=== PATIENT | female | born 1935 | race Caucasian/White ===

== ENCOUNTER 2018-12-31 12:16 | Emergency (ER) | payer MEDICARE ==
--- OUTSIDE RECORDS SUMMARY | 2018-12-31 12:37 | XMS REPORT | Continuity of Care Document ---
:1935 External Reference #:[id number] Author Name Jackie Canada MD Address [address] [place] [address] Care Team Providers Name Role Phone Shane Reece DO Care Team Information Merchandising Director Unavailable Shane Reece DO Primary Care Physician Unavailable Payers Date Identification Numbers Payment Provider Subscriber Effective: 2002 Policy Number: [id number] Medicare [facility] Elvis PayID: [id number] [address] [place] [address] Policy Number: [id number] [facility] Elvis PayID: [id number] [address] [place] [address] Problems Active Problems Provider Date Open wound of knee and/or leg and/or Massimo Iqbal MD, Onset: 10/04/2012 ankle FACS Disorder of skin Massimo Iqbal MD, Onset: 10/04/2012 FACS Contusion of knee Massimo Iqbal MD, Onset: 10/04/2012 FACS Contusion of thigh Massimo Iqbal MD, Onset: 10/18/2012 FACS Atrial fibrillation Babs Pritchard, Onset: 10/18/2012 MSN, DROP FORGER Chest pain PritchardBabs marr, Onset: 10/18/2012 MSN, DROP FORGER Benign essential hypertension Babs Pritchard, Onset: 10/18/2012 MSN, DROP FORGER Hyperlipidemia PritchardBabs marr, Onset: 10/18/2012 MSN, DROP FORGER Low blood pressure Mark Anthony Mckeon M.D., Onset: 11/01/2012 FACC Congestive heart failure PritchardBabs mondragon Kole, Onset: 09/07/2013 MSN, DROP FORGER Pulmonary embolism Pritchard, Babs Kole, Onset: 09/07/2013 MSN, DROP FORGER Diverticular disease of colon Kojo PintoElizabeth, Onset: 10/19/2013 [facility] Family history of malignant neoplasm of Millie Richarvinay LincolnElizabeth, Onset: gastrointestinal tract M.Inocente Aortic valve disorder Mark Anthony Mckeon M.D., Onset: 03/14/2014 [facility] Long-term current use of anticoagulant Mark Anthony Mckeon M.D., Onset: 02/2015 [facility] Chronic diastolic heart failure PritchardBabs marr, Onset: 07/19/2015 MSN, DROP FORGER Heart murmur Mark Anthony Mckeon M.D., Onset: 08/20/2015 [facility] Essential hypertension Mark Anthony Mckeon M.D., Onset: 08/20/2015 [facility] Paroxysmal atrial fibrillation PritchardBabs mondragon, Onset: 12/20/2015 MSN, DROP FORGER Chronic obstructive lung disease PritchardBabs mondragon, Onset: 12/20/2015 MSN, DROP FORGER Mitral valve disorder Babs Pritchard, Onset: 12/20/2015 MSN, DROP FORGER Unspecified diastolic (congestive) heart Babs Pritchard, Onset: 12/19 failure MSN, DROP FORGER Aftercare following joint replacement Freedom Rondon M.D. Onset: 01/17/2016 surgery Pneumonia Sherry Sher DO Onset: 09/20/2018 Vitamin deficiency Sherry Sher DO Onset: 09/20/2018 Long-term current use of anticoagulant Sherry Sher DO Onset: 09/20/2018 Localized, primary osteoarthritis of the Pal Mendez MD Onset: 04/17/2010 pelvic region and thigh Arthroplasty of knee Pal Mendez MD Onset: 04/17/2010 Prosthetic arthroplasty of the hip Pal Mendez MD Onset: 04/17/2010 Edema Shane Reece DO Onset: 08/23/2014 Sleep apnea Shane Reece DO Onset: 08/23/2014 Allergic rhinitis Shane Reece DO Onset: 02/24/2013 Obstructive sleep apnea syndrome Shamar Burden MD Onset: 12/30/2012 Non-toxic nodular goiter Shamar Burden MD Onset: 09/04/2012 Synovial cyst Shamar Burden MD Onset: 11/20/2009 Late effect of fracture of neck of femur Shamar Burden MD Onset: 2007 Peripheral venous insufficiency Shamar Burden MD Onset: 10/29/2005 Purpuric disorder Shamar Burden MD Onset: 01/27/2005 Osteochondropathy Shamar Burden MD Onset: 01/27/2005 Primary localized osteoarthrosis of Shamar Burden MD Onset: 01/27/2005 multiple sites Cough Shamar Burden MD Onset: 01/27/2005 Allergic asthma without status Shamar Burden MD Onset: 01/27/2005 asthmaticus 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: 12/02/2018 deficiency Shoulder joint pain Sherry Sher DO Onset: 12/02/2018 Lumbosacral spondylosis without Jackie Canada MD Onset: 12/08/2018 myelopathy Foot-drop Jackie Canada MD Onset: 12/08/2018 Family History Date Family Member(s) Observation Comments General Cancer : (age 80 Years) Father due to Aneurysm Mother Cancer : (age 80 Years) Mother due to Colon Cancer Social History Type Date Description Comments Sex Unknown Lives With Diet Patient is on a lactose-free diet Occupation Retired ADL's/IADL's Independent with all ADL's Tobacco Use Start: Unknown Never Smoked Cigarettes ETOH Use Denies alcohol use Tobacco Use Start: Unknown Patient has never smoked Smoking Status Reviewed: 05/07/18 Patient has never smoked Allergies, Adverse Reactions, Alerts Active Allergies Reaction Severity Comments Date Sulfa Drugs 10/04/2012 Plaquenil 10/04/2012 Minocycline 10/04/2012 Zithromax nausea 10/17/2013 Inactive Allergies Sulfa 01/28/2005 Medications Active Medications SIG Qnty Indications Ordering Provider Date Ergocalciferol 1 cap by mouth 8caps Sherry Sher, 09/23/2018 [id number] every week DO Capsules Furosemide 1 by mouth 90tabs I50.32 PritchardBabs mondragon 11/29/2015 40mg Tablets every day CAROLIN Sharif, DROP FORGER I50.30 Nasonex 2 sprays each nostril 1units Shane Reece, DO 12/07/2014 50mcg/Act Suspension every day Albuterol Sulfate q 1 h prn sob 100units Shamar Burden, 02/26/2009 2mg/5ML MD Syrup Dulera 2 puffs qd Unknown 200-5mcg/Act Aerosol Spiriva Respimat 2 inhalations once a Unknown 2.5mcg/Act day Aerosol Sotalol HCL 1 by mouth twice a 180tabs Mark Anthony Mckeon 80mg Tablets day Harmeet Terrazas, [facility] Eliquis 1 tab by mouth twice Unknown 5mg Tablets a day Lyrica 1 tab by mouth twice Unknown 75mg Capsules a day Amitriptyline HCL Shane Reece, 10mg Tablets History Medications Potassium Chloride ER 1 by mouth every 90tabs Mark Anthony Mckeon 2018 - day Harmeet [place]raz[place], [facility] 09/20/2018 20Meq Tablets ER Metolazone by mouth every 60tabs Mark Anthony Mckeon 08/03/2018 - 2.5mg day 20 min Harmeet [place], [facility] 09/20/2018 Tablets before lasix Lovenox 100mg sq twice a 8units Mark Anthony Mckeon 06/08/2017 - 100mg/ml day 2 days prior Harmeet Terrazas, [facility] Unknown Solution to the surgery. none the day of the surgery. restart the following day until inr 2-3 Sotalol HCL 1 by mouth twice 60tabs I48.0 Babs Pritchard 07/19/2015 - 80mg a day CAROLIN Sharif, 01/17/2016 Tablets DROP FORGER Amitriptyline HCL Take 1 Tablet At 90tabs Shane Reece, 01/10/2015 - 10mg Bedtime DO Unknown Tablets Amiodarone HCL 1 by mouth every 30tabs I48.0 Mark Anthony Mckeon 11/15/2014 - 200mg day Harmeet [place], [facility] 07/19/2015 Tablets Metolazone 1 by mouth every 30tabs Mark Anthony Mckeon 03/30/2014 - 5mg Tablets day Harmeet Terrazas, [facility] Unknown Furosemide 1/2 po qd 428.0 Mark Anthony Mckeon 03/16/2013 - 40mg Tablets Harmeet Terrazas, [facility] Unknown Furosemide 1 by mouth twice 60tabs 428.0 Pritchard, Babs 03/02/2013 - 40mg Tablets a day Kole [facility], 03/16/2013 DROP FORGER Cephalexin 1 Tab PO qid 28tabs Massimo Iqbal 11/10/2012 - 250mg MD Tommy, [facility] Unknown Tablets Ciprofloxacin HCL 1 tab po q 12 h 14tabs Massimo Iqbal 11/10/2012 - 500mg MD Tommy, [facility] Unknown Tablets Spironolactone 1 by mouth every 90tabs I50.30 Pritchard, Babs 10/25/2012 - 25mg day Kole [facility], 11/29/2015 Tablets DROP FORGER Amiodarone HCL take 1 tablet 90tabs Mark Anthony Mckeon 10/15/2012 - 200mg daily Harmeet [place], [facility] 11/15/2014 Tablets Verapamil HCL ER 1 by mouth every 90tabs Pritchard Babs 09/23/2012 - 240mg day Kole [facility], Unknown Tablets ER DROP FORGER Percocet 1-2 po q4h pain 40tabs Pal Mendez MD 12/31/2010 - 5-325mg Unknown Tablets Mobic 1 po qd pc 90tabs Pal Mendez MD 10/03/2009 - 15mg Tablets Unknown Calcium + D 1 tab qd Unknown - 1000mg Unknown Chewtabs Lyrica 1 po bid Unknown - 75mg Capsules Unknown Furosemide 1 by mouth every 90tabs I50.32 Pritchard, Babs - 40mg Tablets day Kole [facility], 11/29/2015 DROP FORGER I50.30 Amitriptyline HCL 1 po qd Unknown - 10mg Unknown Tablets Singulair 1 po qd Unknown - 10mg Tablets Unknown Mucinex 1 po qd 30tabs Unknown - 600mg Tablets ER Unknown 12HR Vitamin D 1 po tid Unknown - 400Unit Capsules 09/20/2018 Tylenol 2 PO prn Unknown - 325mg Tablets 09/20/2018 Calcium Carbonate 1PO bid Shamar Burden - 1500mg MD Taylor Unknown Tablets Cyclobenzaprine HCL 1 po q 8 hr prn Shane Reece, - 10mg DO Unknown Tablets Tramadol 1 tab by mouth Unknown - Hydrochloride/Acetamino every 6 hours 09/20/2018 phen pain 37.5-325mg Tablets Lyrica one capsule bid Ruchi, Mara, - 50mg Capsules HOT MOLDER 09/20/2018 Amitriptyline HCL Shane Reece, - 10mg DO Unknown Tablets Breo Ellipta Inhale One puff Unknown - 200-25mcg/Inh By Mouth Every Unknown Aerosol Day Montelukast Sodium 1 tab qd Unknown - 10mg Unknown Tablets Tramadol HCL Unknown - 50mg Tablets Unknown Nitrostat as needed Unknown - 0.4mg Tablets Sub Unknown Furosemide 1 tab po qd 428.0 Unknown - 40mg Tablets 03/02/2013 Albuterol Sulfate prn Unknown - Unknown (2.5mg/3ML) 0.083% Nebulizer Lisinopril 1 tab qd 458.9 Unknown - 20mg Tablets 10/12/2012 Xyzal 1 tab qd Unknown - 5mg Tablets Unknown Warfarin Sodium as directed. 360tabs Pritchard, Babs - 2.5mg CAROLIN Sharif, Unknown Tablets DROP FORGER Calcitriol 3 tabs qd Unknown - 0.25mcg Capsules Unknown Nasacort Aq 2 Sprays qd Unknown - 55mcg/Act Unknown Aerosol Ventolin HFA prn Unknown - 108(90Base) 01/15/2017 mcg/ac Aerosol Align 1 by mouth Unknown - 4mg Capsules every day Unknown Prednisone Unknown - 5mg Tablets Unknown Verapamil HCL CR 1 by mouth Unknown - 240mg every day Unknown Tablets ER Spironolactone 1 po bid 90tabs Unknown - 25mg Tablets 10/25/2012 Medications Administered in Office Medication SIG Qnty Indications Ordering Provider Date Vitamin B12 Injection 1000 Sherry Sher, 11/16/2018 mcg/Ml Injection Immunizations CPT Code Status Date Vaccine Reaction Lot # [id number] Given 03/20/2014 Influenza High Dose 08878 Given 03/24/2013 flu vaccination 06767 Given 03/18/2012 flu vaccination 25263 Given 04/24/2011 Tdap injection VIS DATE 05/23/08 02907 Given 03/28/2011 flu vaccination 34685 Given 05/09/2010 flu vaccination 11677 Given 03/08/2009 flu vaccination 83092 Given 05/04/2008 flu vaccination 48899 Given 04/08/2007 flu vaccination 00244 Given 05/15/2004 flu vaccination 09817 Given 05/29/2003 flu vaccination 57901 Given 07/06/2002 Pneumovax Injection 13633 Given 07/06/1998 Td Preservative Free For Use In Individuals 7 Yrs Or Older Vital Signs Date Vital Result Comment 12/08/2018 9:39am BP Systolic Sitting Left Arm 130 mmHg BP Diastolic Sitting Left Arm 75 mmHg Heart Rate 60 /min Weight 202.00 lb 12/02/2018 12:21pm BP Systolic Sitting Right Arm 139 mmHg BP Diastolic Sitting Right Arm 59 mmHg Body Temperature 97.8 F Heart Rate 58 /min Weight 205.00 lb O2 % BldC Oximetry 96 % 11/16/2018 9:45am BP Systolic 127 mmHg BP Diastolic 56 mmHg Body Temperature 98.3 F Heart Rate 70 /min Weight 200.38 lb O2 % BldC Oximetry 94 % Pain Level 0 11/03/2018 2:28pm BP Systolic Sitting Left Arm 110 mmHg BP Diastolic Sitting Left Arm 66 mmHg Heart Rate 70 /min Respiratory Rate 16 /min Height 62.26 inches 5'2.26" Weight 202.00 lb BMI (Body Mass Index) 36.6 kg/m2 BSA (Body Surface Area) 1.93 m2 [place] body weight in kilograms 50 kg Both Visual Acuity Distance 92 -RA 09/20/2018 1:40pm BP Systolic 144 mmHg BP Diastolic 58 mmHg Body Temperature 98.5 F Heart Rate 73 /min Respiratory Rate 16 /min Height 62.26 inches 5'2.26" Weight 198.38 lb BMI (Body Mass Index) 36.0 kg/m2 BSA (Body Surface Area) 1.91 m2 [place] body weight in kilograms 50 kg O2 % BldC Oximetry 93 % Pain Level 0 05/07/2018 1:55pm BP Systolic Sitting Left Arm 100 mmHg BP Diastolic Sitting Left Arm 55 mmHg Heart Rate 83 /min Respiratory Rate 18 /min Height 63 inches 5'3" per pt Weight 208.00 lb BMI (Body Mass Index) 36.8 kg/m2 BSA (Body Surface Area) 1.97 m2 [place] body weight in kilograms 52 kg O2 % BldC Oximetry 96 % 11/04/2017 9:40am BP Systolic Sitting Left Arm 122 mmHg BP Diastolic Sitting Left Arm 72 mmHg Heart Rate 72 /min Respiratory Rate 16 /min Height 63 inches 5'3" per pt Weight 210.00 lb BMI (Body Mass Index) 37.2 kg/m2 BSA (Body Surface Area) 1.97 m2 [place] body weight in kilograms 52 kg 05/06/2017 1:53pm BP Systolic Sitting Left Arm 98 mmHg BP Diastolic Sitting Left Arm 60 mmHg Heart Rate 72 /min Respiratory Rate 16 /min Height 63 inches 5'3" per pt Weight 215.00 lb BMI (Body Mass Index) 38.1 kg/m2 BSA (Body Surface Area) 1.99 m2 [place] body weight in kilograms 52 kg 01/15/2017 1:37pm Height 63 inches 5'3" per pt Weight 214.00 lb per pt BMI (Body Mass Index) 37.9 kg/m2 BSA (Body Surface Area) 1.99 m2 [place] body weight in kilograms 52 kg 09/24/2016 9:01am BP Systolic Sitting Left Arm 106 mmHg BP Diastolic Sitting Left Arm 76 mmHg Heart Rate 73 /min Respiratory Rate 18 /min Height 63.5 inches 5'3.50" Weight 218.00 lb BMI (Body Mass Index) 38.0 kg/m2 BSA (Body Surface Area) 2.02 m2 03/27/2016 10:21am BP Systolic Sitting Left Arm 132 mmHg BP Diastolic Sitting Left Arm 72 mmHg Heart Rate 63 /min Respiratory Rate 16 /min Height 63.5 inches 5'3.50" Weight 227.00 lb BMI (Body Mass Index) 39.6 kg/m2 BSA (Body Surface Area) 2.05 m2 01/17/2016 1:09pm BP Systolic 135 mmHg BP Diastolic 69 mmHg Heart Rate 67 /min Height 63.5 inches 5'3.50" Weight 227.00 lb BMI (Body Mass Index) 39.6 kg/m2 BSA (Body Surface Area) 2.05 m2 [place] body weight in kilograms 53 kg 12/20/2015 10:35am BP Systolic Sitting Left Arm 110 mmHg BP Diastolic Sitting Left Arm 60 mmHg Heart Rate 56 /min Respiratory Rate 16 /min Height 67 inches 5'7" Weight 227.00 lb BMI (Body Mass Index) 35.5 kg/m2 BSA (Body Surface Area) 2.13 m2 11/29/2015 2:35pm BP Systolic Sitting Left Arm 110 mmHg BP Diastolic Sitting Left Arm 62 mmHg Heart Rate 58 /min Respiratory Rate 16 /min Height 67 inches 5'7" Weight 222.00 lb BMI (Body Mass Index) 34.8 kg/m2 BSA (Body Surface Area) 2.11 m2 08/20/2015 3:13pm BP Systolic Sitting Left Arm 126 mmHg BP Diastolic Sitting Left Arm 64 mmHg Heart Rate 57 /min Respiratory Rate 20 /min Height 67 inches 5'7" Weight 233.00 lb BMI (Body Mass Index) 36.5 kg/m2 BSA (Body Surface Area) 2.16 m2 07/19/2015 1:18pm BP Systolic Sitting Right Arm 128 mmHg BP Diastolic Sitting Right Arm 64 mmHg Heart Rate 80 /min Respiratory Rate 16 /min Height 67 inches 5'7" Weight 234.00 lb BMI (Body Mass Index) 36.6 kg/m2 BSA (Body Surface Area) 2.16 m2 04/12/2015 10:24am BP Systolic Sitting Right Arm 146 mmHg BP Diastolic Sitting Right Arm 70 mmHg Heart Rate 80 /min Respiratory Rate 16 /min Weight 237.00 lb 03/29/2015 2:45pm BP Systolic 127 mmHg BP Diastolic 63 mmHg Heart Rate 82 /min Weight 234.00 lb O2 % BldC Oximetry 99 % 01/17/2015 10:58am BP Systolic Sitting Left Arm 108 mmHg BP Diastolic Sitting Left Arm 69 mmHg Heart Rate 68 /min Height 64 inches 5'4" Weight 225.00 lb BMI (Body Mass Index) 38.6 kg/m2 BSA (Body Surface Area) 2.06 m2 01/10/2015 10:08am BP Systolic 118 mmHg BP Diastolic 70 mmHg Heart Rate 72 /min Respiratory Rate 18 /min Height 63.10 inches Weight 229.00 lb BMI (Body Mass Index) 40.4 kg/m2 09/14/2014 1:57pm BP Systolic Sitting Right Arm 144 mmHg BP Diastolic Sitting Right Arm 78 mmHg Heart Rate 102 /min Respiratory Rate 18 /min Height 64 inches 5'4" Weight 236.00 lb BMI (Body Mass Index) 40.5 kg/m2 BSA (Body Surface Area) 2.10 m2 07/17/2014 2:51pm BP Systolic Sitting Right Arm 134 mmHg BP Diastolic Sitting Right Arm 70 mmHg Heart Rate 86 /min Respiratory Rate 16 /min Height 64 inches 5'4" Weight 241.00 lb BMI (Body Mass Index) 41.4 kg/m2 BSA (Body Surface Area) 2.12 m2 06/08/2014 3:57pm BP Systolic Sitting Right Arm 138 mmHg BP Diastolic Sitting Right Arm 62 mmHg Heart Rate 88 /min Respiratory Rate 16 /min Height 64 inches 5'4" Weight 235.00 lb BMI (Body Mass Index) 40.3 kg/m2 BSA (Body Surface Area) 2.10 m2 05/08/2014 2:42pm BP Systolic Sitting Left Arm 122 mmHg BP Diastolic Sitting Left Arm 62 mmHg Heart Rate 88 /min Respiratory Rate 16 /min Height 64 inches 5'4" Weight 238.00 lb BMI (Body Mass Index) 40.8 kg/m2 BSA (Body Surface Area) 2.11 m2 04/06/2014 2:29pm BP Systolic Sitting Right Arm 122 mmHg BP Diastolic Sitting Right Arm 58 mmHg Heart Rate 80 /min Respiratory Rate 16 /min Height 64 inches 5'4" Weight 241.00 lb BMI (Body Mass Index) 41.4 kg/m2 BSA (Body Surface Area) 2.12 m2 03/30/2014 9:34am BP Systolic Sitting Right Arm 132 mmHg BP Diastolic Sitting Right Arm 68 mmHg Heart Rate 80 /min Respiratory Rate 16 /min Height 64 inches 5'4" Weight 242.00 lb BMI (Body Mass Index) 41.5 kg/m2 BSA (Body Surface Area) 2.12 m2 03/14/2014 9:49am BP Systolic Sitting Right Arm 122 mmHg BP Diastolic Sitting Right Arm 58 mmHg Heart Rate 81 /min Respiratory Rate 16 /min Height 64 inches 5'4" Weight 245.00 lb BMI (Body Mass Index) 42.0 kg/m2 BSA (Body Surface Area) 2.13 m2 01/31/2014 10:14am BP Systolic Sitting Left Arm 118 mmHg BP Diastolic Sitting Left Arm 62 mmHg Heart Rate 80 /min Respiratory Rate 20 /min Height 64 inches 5'4" Weight 243.00 lb BMI (Body Mass Index) 41.7 kg/m2 BSA (Body Surface Area) 2.13 m2 10/19/2013 9:56am BP Systolic Sitting Right Arm 114 mmHg BP Diastolic Sitting Right Arm 69 mmHg Heart Rate 70 /min Respiratory Rate 18 /min Height 64 inches 5'4" Weight 242.00 lb BMI (Body Mass Index) 41.5 kg/m2 BSA (Body Surface Area) 2.12 m2 09/07/2013 9:07am BP Systolic Sitting Left Arm 126 mmHg BP Diastolic Sitting Left Arm 64 mmHg Heart Rate 84 /min Respiratory Rate 18 /min Height 64.75 inches 5'4.75" Weight 247.00 lb BMI (Body Mass Index) 41.4 kg/m2 BSA (Body Surface Area) 2.16 m2 03/09/2013 11:07am BP Systolic Sitting Left Arm 132 mmHg BP Diastolic Sitting Left Arm 64 mmHg Heart Rate 80 /min Respiratory Rate 16 /min Height 64.75 inches 5'4.75" Weight 245.00 lb BMI (Body Mass Index) 41.1 kg/m2 BSA (Body Surface Area) 2.15 m2 03/02/2013 8:55am BP Systolic Sitting Left Arm 148 mmHg BP Diastolic Sitting Left Arm 64 mmHg Heart Rate 88 /min Respiratory Rate 18 /min Height 64.75 inches 5'4.75" Weight 245.00 lb BMI (Body Mass Index) 41.1 kg/m2 BSA (Body Surface Area) 2.15 m2 11/01/2012 11:05am BP Systolic Sitting Right Arm 116 mmHg BP Diastolic Sitting Right Arm 68 mmHg Heart Rate 90 /min Respiratory Rate 18 /min Height 64.75 inches 5'4.75" Weight 232.00 lb BMI (Body Mass Index) 38.9 kg/m2 BSA (Body Surface Area) 2.10 m2 10/18/2012 3:09pm BP Systolic Sitting Right Arm 112 mmHg BP Diastolic Sitting Right Arm 56 mmHg Heart Rate 62 /min Respiratory Rate 16 /min Height 64.75 inches 5'4.75" Weight 237.00 lb BMI (Body Mass Index) 39.7 kg/m2 10/12/2012 10:44am BP Systolic Sitting Right Arm 90 mmHg BP Diastolic Sitting Right Arm 60 mmHg BP Systolic Sitting Left Arm 86 mmHg BP Diastolic Sitting Left Arm 58 mmHg Heart Rate 108 /min Respiratory Rate 18 /min Height 64.75 inches 5'4.75" Weight 234.00 lb BMI (Body Mass Index) 39.2 kg/m2 10/04/2012 10:36am BP Systolic Sitting Right Arm 112 mmHg BP Diastolic Sitting Right Arm 70 mmHg Height 64.75 inches 5'4.75" Weight 236.00 lb BMI (Body Mass Index) 39.6 kg/m2 09/01/2012 10:52am Height 63.50 inches 5'3.50" Weight 230.00 lb 09/03/2011 8:47am Height 64.5 inches 5'4.50" Weight 238.00 lb 10/16/2010 8:44am Height 64.75 inches 5'4.75" Weight 235.00 lb 10/03/2009 9:26am Height 64 inches 5'4" Weight 244.00 lb 08/30/2008 9:51am Height 66 inches 5'6" Weight 234.00 lb 09/02/2007 10:37am Height 66 inches 5'6" Weight 256.00 lb 09/02/2006 2:19pm Height 66 inches 5'6" Weight 246.00 lb 08/21/2005 9:46am Height 66 inches 5'6" Weight 238.00 lb 06/02/2005 8:59am Height 66 inches 5'6" Weight 244.00 lb Results Test Date Facility Test Result H/L Range Note Homocyst(E)In 11/23/2018 [facility] Homocyst(e)in 15.4 umol/L High 0.0-15.0 1 , 2 e, P/S [address] e, P/S [place], [place] [id number] [phone] CBC 11/16/2018 [facility] White Blood 10.8 K/uL High 3.1-10.7 3 W/Automated [address] [place] [address] [phone] Red Blood Count 4.75 M/uL N 3.90-5.40 Hemoglobin 13.9 gm/dL N 11.6-15.8 Hematocrit 43.9 % N 36.0-46.1 Mean Cell Volume 92.4 fl N 80.9-99.0 Mean Corpuscular HGB 29.3 pg N 25.9-32.7 Mean Corpuscular HGB Conc 31.7 g/dL N 30.8-34.3 Platelet Count 371 K/uL High 155-360 Red Cell Distri Width SD 51.3 fl High 36-47 Red Cell Distri Width %CV 15.1 % High 11.7-14.4 Mean Platelet Volume 10.4 fl N 8.9-12.4 Neut% 79.3 % High 40.4-72.8 Lymph % 10.1 % Low 20.0-42.0 [place] % 8.3 % N 4.3-13.2 Eo% 1.2 % N 0.0-6.6 Bas% 0.6 % N 0.0-1.1 Immature Grans 0.5 % N 0.0-5.0 NRBC % 0.0 /100WBC < 10/ 100 WBC Neut# 8.57 K/uL High 1.8-7.0 Lymph # 1.09 K/uL N 1.0-4.0 [place] # 0.90 K/uL N 0.3-0.9 Eos # 0.13 K/uL N 0.0-0.5 Baso # 0.07 K/uL N 0.0-0.1 Immature Grans Absolute 0.05 K/uL NRBC # 0.00 K/uL Comprehensive Metabolic 11/16/2018 [facility] Glucose 54 mg/dL Low 74-106 Panel [address] [place] [address] [phone] BUN 22 mg/dL High 7-18 Creatinine 0.9 mg/dL N 0.6-1.3 Glom Filtration Rate, Estimate >60 mL/min >60 If >60 mL/min >60 4 BUN/Creat 24.4 ratio Sodium 137 mmol/L N 136-145 Potassium 3.8 mmol/L N 3.5-5.1 Chloride 101 mmol/L N 98-107 Carbon Dioxide 29 mmol/L N 21-32 Anion Gap 7 mEq/L Low 8-16 Calcium 9.1 mg/dL N 8.5-10.1 Total Protein 7.7 g/dL N 6.4-8.2 Albumin 3.5 g/dL N 3.4-5.0 Globulin 4.2 g/dL N 1.9-4.3 Alb/Glob 0.8 ratio Bilirubin,Total 0.3 mg/dL N 0.2-1.0 Sgot/Ast 20 U/L N 15-37 SGPT/Alt 17 U/L N 12-78 Alkaline Phosphatase 115 U/L N 45-117 Iron-Tibc-%Sat 11/16/2018 [facility] Serum Iron 56 g/dL N 50-170 [address] [place] [address] [phone] Total Iron Binding Capacity 277 g/dL N 250-450 Transferrin %Saturation 20 % N 12-57 Laboratory test 11/16/2018 [facility] Ferritin 108 ng/mL N 8-252 finding [address] [place] [address] [phone] Vitamin B12 And 11/16/2018 [facility] Vitamin B12 366 pg/mL N 193-986 Folate [address] [place] [address] [phone] Folic Acid 14.7 ng/mL N 3.1-17.5 Laboratory 11/16/2018 [facility] Vitamin 22.9 Low 30.0-100.0 5 test finding [address] D,25-Hydroxy ng/[place] [address] [phone] Iron-Tibc-%Sat 09/20/2018 [facility] Serum Iron 66 g/dL N 50-170 [address] [place] [address] [phone] Total Iron Binding Capacity 247 g/dL Low 250-450 Transferrin %Saturation 27 % N 12-57 Laboratory test 09/20/2018 [facility] Ferritin 230 ng/mL N 8-252 finding [address] [place] [address] [phone] Vitamin B12 And 09/20/2018 [facility] Vitamin B12 393 pg/mL N 193-986 Folate [address] [place] [address] [phone] Folic Acid 15.1 ng/mL N 3.1-17.5 Laboratory test 09/20/2018 [facility] Vitamin 19.1 Low 30.0-100.0 [address] D,25-Hydroxy ng/[place] [address] [phone] Factor II Dna 09/20/2018 [facility] Factor II, Dna (SEE [address] Analysis NOTE) [place] [address] [phone] Methylenetetrahydrof 09/20/2018 [facility] MTHFR,Dna (SEE [address]u [address] Analysis NOTE) [place] [address] [phone] Anticardiolipin AB 09/20/2018 [facility] Anticardiolipin < 9 0-14 9 Iga/Igg/Igm [address] Igg GPLU/[place] [address] L [phone] Anticardiolipin Igm, Quant < 9 MPLU/mL 0-12 10 Anticardiolipin Iga < 9 APLU/mL 0-11 11 Laboratory test 09/20/2018 [facility] Antinuclear Negative . [address] Antibodies, [place] [address] [phone] Lupus 09/20/2018 [facility] PTT-LA 47.3 sec 0.0-[address] .9 [place] [address] [phone] DRVVT 77.9 sec High 0.0-47.0 13 Note: Comment: . 14 Factor V Leiden 09/20/2018 [facility] Factor V (SEE NOTE) [address] [place] [address] [phone] Laboratory test 09/20/2018 [facility] DRVVT Mix 52.7 sec High 0.0-47 [address]0 [place] [address] [phone] DRVVT Confirm 1.2 ratio 0.8-1.2 Comprehensive Metabolic 09/20/2018 [facility] Glucose 87 mg/dL N 74-[address] [place] [address] [phone] BUN 16 mg/dL N 7-18 Creatinine 0.9 mg/dL N 0.6-1.3 Glom Filtration Rate, Estimate >60 mL/min >60 If >60 mL/min >60 17 BUN/Creat 17.7 ratio Sodium 137 mmol/L N 136-145 Potassium 3.8 mmol/L N 3.5-5.1 Chloride 102 mmol/L N 98-107 Carbon Dioxide 30 mmol/L N 21-32 Anion Gap 5 mEq/L Low 8-16 Calcium 8.4 mg/dL Low 8.5-10.1 Total Protein 6.9 g/dL N 6.4-8.2 Albumin 3.0 g/dL Low 3.4-5.0 Globulin 3.9 g/dL N 1.9-4.3 Alb/Glob 0.8 ratio Bilirubin,Total 0.2 mg/dL N 0.2-1.0 Sgot/Ast 17 U/L N 15-37 SGPT/Alt 13 U/L N 12-78 Alkaline Phosphatase 87 U/L N 45-117 CBC W/Automated Diff 09/20/2018 [facility] White Blood 9.3 K/uL N 3.1-10.[address] [place] [address] [phone] Red Blood Count 4.61 M/uL N 3.90-5.40 Hemoglobin 13.3 gm/dL N 11.6-15.8 Hematocrit 41.3 % N 36.0-46.1 Mean Cell Volume 89.6 fl N 80.9-99.0 Mean Corpuscular HGB 28.9 pg N 25.9-32.7 Mean Corpuscular HGB Conc 32.2 g/dL N 30.8-34.3 Platelet Count 305 K/uL N 155-360 Red Cell Distri Width SD 53.5 fl High 36-47 Red Cell Distri Width %CV 16.6 % High 11.7-14.4 Mean Platelet Volume 10.3 fL N 8.9-12.4 Neut% 72.3 % N 40.4-72.8 Lymph % 16.0 % Low 20.0-42.0 [place] % 8.4 % N 4.3-13.2 Eo% 3.0 % N 0.0-6.6 Bas% 0.3 % N 0.0-1.1 Neut# 6.74 K/uL N 1.8-7.0 Lymph # 1.49 K/uL N 1.0-4.0 [place] # 0.78 K/uL N 0.3-0.9 Eos # 0.28 K/uL N 0.0-0.5 Baso # 0.03 K/uL N 0.0-0.1 Protime 08/31/2018 [facility] Protime 24.5 seconds High 12.0-14.[address] [place] [address] [phone] Inr 2.3 High 0.9-1.1 19 Laboratory test 08/30/2018 [facility] Act Partial 109.0 High 23.4-35.0 [address] [place] [address] Time [phone] Laboratory test 08/30/2018 [facility] Act Partial 66.9 High 23.4-35.0 [address] [place] [address] Time [phone] CBC 08/30/2018 [facility] White Blood 10.4 K/uL N 3.1-10.[address] [place] [address] [phone] Red Blood Count 4.25 M/uL N 3.90-5.40 Hemoglobin 11.9 gm/dL N 11.6-15.8 Hematocrit 37.2 % N 36.0-46.1 Mean Cell Volume 87.5 fl N 80.9-99.0 Mean Corpuscular HGB 28.0 pg N 25.9-32.7 Mean Corpuscular HGB Conc 32.0 g/dL N 30.8-34.3 Platelet Count 354 K/uL N 155-360 Red Cell Distri Width %CV 14.9 % High 11.7-14.4 Mean Platelet Volume 9.3 fL N 8.9-12.4 Basic Metabolic Panel 08/30/2018 [facility] Glucose 90 mg/dL N 74-[address] [place] [address] [phone] BUN 9 mg/dL N 7-18 Creatinine 0.9 mg/dL 0.6-1.3 Glom Filtration Rate, Estimate >60 mL/min >60 If >60 mL/min >60 22 BUN/Creat 10.0 ratio Sodium 134 mmol/L Low 136-145 Potassium 4.1 mmol/L N 3.5-5.1 Chloride 99 mmol/L N 98-107 Carbon Dioxide 31 mmol/L N 21-32 Anion Gap 4 mEq/L Low 8-16 Calcium 7.8 mg/dL Low 8.5-10.1 Laboratory test 08/29/2018 [facility] Act Partial > 150.0 High 23.4-35.[address] [place] [address] Time [phone] Laboratory test 08/29/2018 [facility] Act Partial > 150.0 High 23.4-35.0 [address] [place] [address] Time [phone] CBC W/Automated 08/29/2018 [facility] White Blood 13.4 K/uL High 3.1-10.[address] [place] [address] [phone] Red Blood Count 4.30 M/uL N 3.90-5.40 Hemoglobin 12.2 gm/dL N 11.6-15.8 Hematocrit 37.4 % 36.0-46.1 Mean Cell Volume 87.0 fl N 80.9-99.0 Mean Corpuscular HGB 28.4 pg N 25.9-32.7 Mean Corpuscular HGB Conc 32.6 g/dL N 30.8-34.3 Platelet Count 341 K/uL N 155-360 Red Cell Distri Width SD 46.6 fl N 36-47 Red Cell Distri Width %CV 14.9 % High 11.7-14.4 Mean Platelet Volume 9.1 fL N 8.9-12.4 Neut% 76.5 % High 40.4-72.8 Lymph % 9.8 % Low 20.0-42.0 [place] % 12.1 % N 4.3-13.2 Eo% 1.5 % N 0.0-6.6 Bas% 0.1 % N 0.0-1.1 Neut# 10.22 K/uL High 1.8-7.0 Lymph # 1.31 K/uL N 1.0-4.0 [place] # 1.62 K/uL High 0.3-0.9 Eos # 0.20 K/uL N 0.0-0.5 Baso # 0.01 K/uL N 0.0-0.1 Laboratory 08/29/2018 [facility] Act Partial > 150.0 High 23.4-35.0 24 test finding [address] Throm[employer] Time seconds [place], [place] [id number] [phone] Influenza A/B 08/28/2018 [facility] Influenza A Negative (Negative) Antigen [address] [place] [address] [phone] Influenza B Antigen Negative (Negative) 25 Arterial Blood Gas 08/28/2018 [facility] Arterial Blood 7.45 N 7.35-7.[address] [place] [place] [address] [phone] Arterial Blood Gas Pco2 46 mmHg High 35-45 Arterial Blood Gas Po2 106 mmHg High 80-105 ABG Hco3 31 mEq/L High 22-26 ABG Base Excess 7 mEq/L High -2-2 ABG O2 Saturation 97 % N 90-99 Allens Test Performed? YES Arterial Blood Gas Type OXYGEN Arterial Blood Gas L/M 3 L/MIN N 0-20 Arterial Blood Gas Del. N/C Arterial Blood Gas Site L.RAD.ART. Protime 08/28/2018 [facility] Protime 20.3 seconds High 12.0-14.[address] [place] [address] [phone] Inr 1.8 High 0.9-1.1 26 PT W/Inr 08/26/2018 [facility] 2.5 Normalized Ratio PT W/Inr 08/25/2018 [facility] 6.1 Normalized Ratio PT W/Inr 08/03/2018 [facility] 2.2 Normalized Ratio PT W/Inr 07/15/2018 [facility] 2.1 Normalized Ratio PT W/Inr 07/07/2018 [facility] 1.6 Normalized Ratio PT W/Inr 06/21/2018 [facility] 2.1 Normalized Ratio PT W/Inr 06/14/2018 [facility] 3.5 Normalized Ratio PT W/Inr 06/07/2018 [facility] 1.7 Normalized Ratio PT W/Inr 05/26/2018 [facility] 2.5 Normalized Ratio PT W/Inr 05/18/2018 [facility] 3.3 Normalized Ratio PT W/Inr 05/07/2018 [facility] 3.0 Normalized Ratio PT W/Inr 04/30/2018 [facility] 1.7 Normalized Ratio PT W/Inr 04/26/2018 [facility] 1.4 Normalized Ratio PT W/Inr 04/22/2018 [facility] 4.9 Normalized Ratio RDW RBC Auto-Rto 04/01/2018 N2N/CCD Import RDW RBC Auto-Rto 14.2 11.7- 14.4 RDW RBC Auto 04/01/2018 N2N/CCD Import RDW RBC Auto 45.5 3-47 Prothrombin time 04/01/2018 N2N/CCD Import Prothrombin time 19.3 High 12.0-14.4 (PT) in platelet (PT) in platelet poor plasma poor plasma Potassium 04/01/2018 N2N/CCD Import Potassium 4.2 3.5-5.1 SerPl-sCnc SerPl-sCnc Platelet poor 04/01/2018 N2N/CCD Import Platelet poor 1.7 High 0.9-1.1 plasma plasma international international normalized rati normalized ratio (Inr) by coagulation assay (relative time) Neutrophils/leuk 04/01/2018 N2N/CCD Import Neutrophils/leuk 74.5 High 40.4-72.8 NFr Bld Auto NFr Bld Auto Neutrophils # Bld 04/01/2018 N2N/CCD Import Neutrophils # Bld 8.20 High 1.8-7.0 Auto Auto Monocytes/leuk NFr 04/01/2018 N2N/CCD Import Monocytes/leuk NFr 10.2 4.3 -13.2 Bld Auto Bld Auto Lymphocytes/leuk 04/01/2018 N2N/CCD Import Lymphocytes/leuk 13.6 Low 20.0 -42.0 NFr Bld Auto NFr Bld Auto Globulin Ser 04/01/2018 N2N/CCD Import Globulin Ser 4.2 1.9-4.3 Calc-mCnc Calc-mCnc GFR/Bsa pred.non 04/01/2018 N2N/CCD Import GFR/Bsa pred.non 57 >60 black SerPl black SerPl MDRD-ArVRat MDRD-ArVRat Eosinophil/leuk NFr 04/01/2018 N2N/CCD Import Eosinophil/leuk NFr 1.4 0.0-6.6 Bld Auto Bld Auto Chloride SerPl-sCnc 04/01/2018 N2N/CCD Import Chloride SerPl-sCnc 101 98 -107 Serum carbon 04/01/2018 N2N/CCD Import Serum carbon 31 21-32 dioxide measurement dioxide measurement Serum or plasma 04/01/2018 N2N/CCD Import Serum or plasma 3.3 Low 3.4- 5.0 albumin measurement albumin measurement (mass/volume) (mass/volume) Serum or plasma 04/01/2018 N2N/CCD Import Serum or plasma 102 45-117 alkaline alkaline phosphatase phosphatase measurement ( measurement (enzymatic activity/volume) Serum or plasma 04/01/2018 N2N/CCD Import Serum or plasma 24 15-37 aspartate aspartate aminotransferase aminotransferase measure measurement (enzymatic activity/volume) Serum or plasma 04/01/2018 N2N/CCD Import Serum or plasma 9.0 8.5-10.1 calcium measurement calcium measurement (mass/volume) (mass/volume) Serum or plasma 04/01/2018 N2N/CCD Import Serum or plasma 1.0 0.6-1.3 creatinine creatinine measurement measurement (mass/volum (mass/volume) Serum or plasma 04/01/2018 N2N/CCD Import Serum or plasma 109 High 74- 106 glucose measurement glucose measurement (mass/volume) (mass/volume) Serum or plasma 04/01/2018 N2N/CCD Import Serum or plasma 7.5 6.4-8.2 protein measurement protein measurement (mass/volume) (mass/volume) Serum or plasma 04/01/2018 N2N/CCD Import Serum or plasma 0.3 0.2-1.0 total bilirubin total bilirubin measurement (mass/ measurement (mass/volume) Serum or plasma 04/01/2018 N2N/CCD Import Serum or plasma 19 High 7-18 urea nitrogen urea nitrogen measurement measurement (mass/vo (mass/volume) Serum or plasma 04/01/2018 N2N/CCD Import Serum or plasma 19.0 urea urea nitrogen/creatinine nitrogen/creatinine mass rati mass ratio Serum sodium 04/01/2018 N2N/CCD Import Serum sodium 139 136-145 measurement measurement Unloinc 04/01/2018 N2N/CCD Import Unloinc . PT W/Inr 04/01/2018 [facility] 1.7 Normalized Ratio Laboratory comment 04/01/2018 N2N/CCD Import Laboratory comment Culture To [Text] in Report [Text] in Report Follow Narrative Narrative Ketones Ur 04/01/2018 N2N/CCD Import Ketones Ur Negative Negative Strip.auto-mCnc Strip.auto-mCnc Epithelial cells 04/01/2018 N2N/CCD Import Epithelial cells Few None Seen detection in urine detection in urine sediment by li sediment by light microscopy Color Ur 04/01/2018 N2N/CCD Import Color Ur Yellow Yellow Bacteria detection 04/01/2018 N2N/CCD Import Bacteria detection Many High None Seen in urine sediment in urine sediment by light micr by light microscopy Leukocyte esterase 04/01/2018 N2N/CCD Import Leukocyte esterase Moderate High Negative Ur Ql Strip.auto Ur Ql Strip.auto Nitrite Ur Ql 04/01/2018 N2N/CCD Import Nitrite Ur Ql Positive High Negative Strip.auto Strip.auto Prot Ur 04/01/2018 N2N/CCD Import Prot Ur Negative Negative Strip.auto-mCnc Strip.auto-mCnc Specific gravity of 04/01/2018 N2N/CCD Import Specific gravity of 1.010 1.010-1.03 Urine by Automated Urine by Automated 0 test strip test strip Urine appearance 04/01/2018 N2N/CCD Import Urine appearance SL Cloudy Clear determination determination Urine glucose 04/01/2018 N2N/CCD Import Urine glucose Negative Negative measurement by measurement by automated test automated test strip strip (mass/volume) Urine hemoglobin 04/01/2018 N2N/CCD Import Urine hemoglobin Trace Negative detection by detection by automated test automated test strip strip Urine total 04/01/2018 N2N/CCD Import Urine total Negative Negative bilirubin detection bilirubin detection by automated test by automated test strip Urobilinogen Ur 04/01/2018 N2N/CCD Import Urobilinogen Ur 0.2 0.2-1.0 Strip-aCnc Strip-aCnc pH Ur Strip.auto 04/01/2018 N2N/CCD Import pH Ur Strip.auto 6.5 6.5-7.5 Alt SerPl-cCnc 04/01/2018 N2N/CCD Import Alt SerPl-cCnc 19 12-78 Basophils/leuk NFr 04/01/2018 N2N/CCD Import Basophils/leuk NFr 0.3 0.0- 1.1 Bld Auto Bld Auto Blood erythrocytes 04/01/2018 N2N/CCD Import Blood erythrocytes 4.67 3.90-5.40 automated count automated count (number/volume) (number/volume) Blood hemoglobin 04/01/2018 N2N/CCD Import Blood hemoglobin 14.2 11.6- 15.8 measurement measurement (mass/volume) (mass/volume) Blood leukocytes 04/01/2018 N2N/CCD Import Blood leukocytes 11.0 High 3.1 -10.7 automated count automated count (number/volume) (number/volume) Blood monocytes 04/01/2018 N2N/CCD Import Blood monocytes 1.12 High 0.3- 0.9 automated count automated count (number/volume) (number/volume) Automated 04/01/2018 N2N/CCD Import Automated 90.1 80.9-99.0 erythrocyte mean erythrocyte mean corpuscular volume corpuscular volume Automated 04/01/2018 N2N/CCD Import Automated 33.7 30.8-34.3 erythrocyte mean erythrocyte mean corpuscular corpuscular hemoglobin hemoglobin concentration measurement (mass/volume) Automated 04/01/2018 N2N/CCD Import Automated 30.4 25.9-32.7 erythrocyte mean erythrocyte mean corpuscular corpuscular hemoglobin hemoglobin (mass per erythrocyte) Automated blood 04/01/2018 N2N/CCD Import Automated blood 9.7 8.9-12.4 platelet mean platelet mean volume measurement volume measurement Automated blood 04/01/2018 N2N/CCD Import Automated blood 309 155-360 platelet count platelet count Automated blood 04/01/2018 N2N/CCD Import Automated blood 1.49 1.0-4.0 lymphocyte count lymphocyte count (number/volume) (number/volume) Automated blood 04/01/2018 N2N/CCD Import Automated blood 42.1 36.0- 46.1 hematocrit (volume hematocrit (volume fraction) fraction) Automated blood 04/01/2018 N2N/CCD Import Automated blood 0.15 0.0-0.5 eosinophil count eosinophil count Automated blood 04/01/2018 N2N/CCD Import Automated blood 0.03 0.0-0.1 basophil count basophil count (count/volume) (count/volume) Anion Gap 04/01/2018 N2N/CCD Import Anion Gap 7 Low 8-16 SerPl-sCnc SerPl-sCnc Albumin/Glob SerPl 04/01/2018 N2N/CCD Import Albumin/Glob SerPl 0.8 PT W/Inr 03/24/2018 [facility] 2.3 Normalized Ratio PT W/Inr 03/10/2018 [facility] 2.4 Normalized Ratio PT W/Inr 02/22/2018 [facility] 3.0 Normalized Ratio PT W/Inr 02/09/2018 [facility] 2.4 Normalized Ratio PT W/Inr 01/25/2018 [facility] 2.2 Normalized Ratio PT W/Inr 01/18/2018 [facility] 2.4 Normalized Ratio PT W/Inr 01/11/2018 [facility] 1.8 Normalized Ratio PT W/Inr 12/14/2017 [facility] 2.3 Normalized Ratio PT W/Inr 12/07/2017 [facility] 2.5 Normalized Ratio PT W/Inr 11/13/2017 [facility] 2.0 Normalized Ratio PT W/Inr 10/13/2017 [facility] 2.0 Normalized Ratio PT W/Inr 10/02/2017 [facility] 2.7 Normalized Ratio PT W/Inr 09/23/2017 [facility] 1.6 Normalized Ratio PT W/Inr 09/14/2017 [facility] 1.9 Normalized Ratio PT W/Inr 09/07/2017 [facility] 2.6 Normalized Ratio PT W/Inr 08/31/2017 [facility] 2.0 Normalized Ratio PT W/Inr 08/24/2017 [facility] 3.6 Normalized Ratio PT W/Inr 08/17/2017 [facility] 2.5 Normalized Ratio PT W/Inr 08/10/2017 [facility] 1.8 Normalized Ratio PT W/Inr 08/03/2017 [facility] 1.8 Normalized Ratio PT W/Inr 07/07/2017 [facility] 2.4 Normalized Ratio PT W/Inr 06/30/2017 [facility] 2.2 Normalized Ratio PT W/Inr 06/24/2017 [facility] 1.3 Normalized Ratio PT W/Inr 06/08/2017 [facility] 2.8 Normalized Ratio PT W/Inr 05/15/2017 [facility] 2.5 Normalized Ratio PT W/Inr 04/22/2017 [facility] 2.4 Normalized Ratio PT W/Inr 03/30/2017 [facility] 2.7 Normalized Ratio PT W/Inr 03/02/2017 [facility] 2.8 Normalized Ratio PT W/Inr 01/29/2017 [facility] 2.9 Normalized Ratio PT W/Inr 12/29/2016 [facility] 2.9 Normalized Ratio PT W/Inr 12/16/2016 [facility] 2.2 Normalized Ratio PT W/Inr 11/17/2016 [facility] 2.1 Normalized Ratio PT W/Inr 11/10/2016 [facility] 2.0 Normalized Ratio PT W/Inr 10/21/2016 [facility] 2.5 Normalized Ratio PT W/Inr 10/14/2016 [facility] 1.9 Normalized Ratio PT W/Inr 09/22/2016 [facility] 2.1 Normalized Ratio PT W/Inr 09/08/2016 [facility] Prothrombin Time 1.7 PT W/Inr 08/21/2016 [facility] 2.4 Normalized Ratio PT W/Inr 08/11/2016 [facility] 2.0 Normalized Ratio PT W/Inr 07/31/2016 [facility] 3.3 Normalized Ratio PT W/Inr 07/10/2016 [facility] 3.2 Normalized Ratio PT W/Inr 06/16/2016 [facility] 3.1 Normalized Ratio PT W/Inr 05/21/2016 [facility] 2.8 Normalized Ratio PT W/Inr 05/05/2016 [facility] 3.1 Normalized Ratio PT W/Inr 04/14/2016 [facility] 3.2 Normalized Ratio PT W/Inr 04/03/2016 [facility] 1.8 Normalized Ratio PT W/Inr 03/14/2016 [facility] 2.6 Normalized Ratio PT W/Inr 02/27/2016 [facility] 2.0 Normalized Ratio PT W/Inr 02/20/2016 [facility] 1.6 Normalized Ratio Basic Metabolic 02/13/2016 [facility] Glucose 89 mg/dL 74-106 Panel [address] [place] [address] [phone] BUN 17 mg/dL 7-18 Creatinine 1.1 mg/dL 0.6-1.3 Glom Filtration Rate, Estimate 51 mL/min >60 If >60 mL/min >60 27 BUN/Creat 15.4 ratio Sodium 137 mmol/L 136-145 Potassium 4.0 mmol/L 3.5-5.1 Chloride 99 mmol/L 98-107 Carbon Dioxide 33 mmol/L High 21-32 Anion Gap 5 mEq/L Low 8-16 Calcium 8.5 mg/dL 8.5-10.1 Protime 02/13/2016 [facility] Protime 27.8 seconds High 12.0-14.4 [address] [place], [place] [id number] [phone] Inr 2.7 High 0.9-1.1 28 PT W/Inr 02/11/2016 [facility] 3.7 Normalized Ratio PT W/Inr 02/04/2016 [facility] 2.7 Normalized Ratio PT W/Inr 01/29/2016 [facility] 1.4 Normalized Ratio PT W/Inr 01/15/2016 [facility] 1.6 Normalized Ratio PT W/Inr 01/01/2016 [facility] 2.1 Normalized Ratio PT W/Inr 12/20/2015 [facility] 2.0 Normalized Ratio PT W/Inr 12/13/2015 [facility] Protime 25.6 seconds High 12.1-14.9 [address] [place] [address] [phone] Inr 2.4 High 0.9-1.1 29 Basic Metabolic Panel 12/13/2015 [facility] Glucose 94 mg/dL 74-106 [address] [place] [address] [phone] BUN 16 mg/dL 7-18 Creatinine 1.2 mg/dL 0.6-1.3 Glom Filtration Rate, Estimate 46 mL/min >60 If 56 mL/min >60 30 BUN/Creat 13.3 ratio Sodium 135 mmol/L Low 136-145 Potassium 4.1 mmol/L 3.5-5.1 Chloride 98 mmol/L 98-107 Carbon Dioxide 31 mmol/L 21-32 Anion Gap 6 mEq/L Low 8-16 Calcium 9.1 mg/dL 8.5-10.1 PT W/Inr 12/07/2015 [facility] Normalized Ratio 1.9 PT W/Inr 11/27/2015 [facility] Normalized Ratio 2.2 PT W/Inr 11/19/2015 [facility] Normalized Ratio 2.0 PT W/Inr 11/12/2015 [facility] Normalized Ratio 1.7 PT W/Inr 10/22/2015 [facility] Normalized Ratio 2.5 PT W/Inr 10/08/2015 [facility] Normalized Ratio 2.2 PT W/Inr 09/17/2015 [facility] Normalized Ratio 3.0 PT W/Inr 08/27/2015 [facility] Normalized Ratio 3.3 PT W/Inr 08/06/2015 [facility] Normalized Ratio 2.1 PT W/Inr 07/27/2015 [facility] Normalized Ratio 1.5 PT W/Inr 07/19/2015 [facility] Normalized Ratio 2.6 PT W/Inr 06/27/2015 [facility] Normalized Ratio 2.2 PT W/Inr 06/11/2015 [facility] Normalized Ratio 2.7 PT W/Inr 05/23/2015 [facility] Normalized Ratio 2.1 PT W/Inr 04/30/2015 [facility] Normalized Ratio 3.1 PT W/Inr 04/09/2015 [facility] Prothrombin Time <pending> International Normalized Ratio 3.3 PT W/Inr 03/19/2015 [facility] 2.2 Normalized Ratio PT W/Inr 02/26/2015 [facility] 2.5 Normalized Ratio PT W/Inr 02/05/2015 [facility] 2.7 Normalized Ratio PT W/Inr 01/29/2015 [facility] 2.9 Normalized Ratio PT W/Inr 01/15/2015 [facility] 3.1 Normalized Ratio PT W/Inr 12/18/2014 [facility] 1.9 Normalized Ratio Laboratory test 12/15/2014 N2N/CCD Import Wound Culture See Note 31 finding PT W/Inr 12/11/2014 [facility] 1.6 Normalized Ratio Laboratory test 12/07/2014 N2N/CCD Import A/G Ratio 1.6 Ratio 1.0-2.2 finding Coni Egfr 39 Low >60 32 Albumin 4.0 g/dL 3.6-4.9 Alkaline Phosphatase 67 U/L 24-140 Alt 23 U/L 3-42 Anion Gap 14 mmol/L 6-14 Ast 31 U/L 8-42 BUN 25 mg/dL 6-26 Calcium 9.0 mg/dL 8.5-10.2 Carbon Dioxide 28 mmol/L 24-34 Chloride 96 Electrolytes <See Note> mmol/L Low 97-109 33 Creatinine 1.6 mg/dL High 0.5-1.4 Globulin 2.5 g/dL 2.0-3.5 Glucose 83 mg/dL 70-105 Non Coni Egfr 32 Low >60 34 Potassium 4.2 mmol/L 3.5-5.2 Sodium 134 mmol/L 134-142 Total Bilirubin 0.3 mg/dL 0.1-1.3 Total Protein 6.5 g/dL 6.0-8.0 CBC With Auto Diff 12/07/2014 N2N/CCD Import Abmon 0.6 K/uL 0.1-1.0 Abs Basophils 0.1 K/uL 0.0-0.3 Abs Eosinophils 0.2 K/uL 0.0-0.5 Abs Lymphocytes 1.2 K/uL 0.8-5.5 Abs Neutrophils 5.7 K/uL 2.1-8.0 Basophil 0.8 % 0.0-4.0 Eosinophil 2.0 % 0.0-5.0 Hematocrit 38.7 % 36.0-47.0 Hemoglobin 13.0 gm/dL 12.0-16.0 Lymphocyte 15.2 % Low 16.0-52.0 MCH 29.8 pg 27.0-32.0 MCHC 33.5 g/dL 32.0-36.0 MCV 89.1 fL 80.0-97.0 Monocyte 7.3 % 2.0-10.0 Neutrophil 74.7 % 35.0-75.0 PLT Count 283 K/ul 140-400 RBC 4.35 M/uL 4.00-5.40 RDW 16.6 % High 11.5-14.5 WBC 7.7 K/uL 4.1-11.0 PT W/Inr 11/13/2014 [facility] 2.4 Normalized Ratio PT W/Inr 11/06/2014 [facility] 3.4 Normalized Ratio PT W/Inr 10/31/2014 [facility] 2.8 Normalized Ratio PT W/Inr 10/23/2014 [facility] 4.7 Normalized Ratio PT W/Inr 09/25/2014 [facility] 3.0 Normalized Ratio PT W/Inr 09/11/2014 [facility] 3.1 Normalized Ratio PT W/Inr 08/15/2014 [facility] 2.8 Normalized Ratio PT W/Inr 07/31/2014 [facility] 2.1 Normalized Ratio PT W/Inr 07/25/2014 [facility] 2.6 Normalized Ratio PT W/Inr 07/17/2014 [facility] 2.5 Normalized Ratio PT W/Inr 07/10/2014 [facility] 2.3 Normalized Ratio PT W/Inr 07/03/2014 [facility] 2.1 Normalized Ratio PT W/Inr 06/26/2014 [facility] 1.7 Normalized Ratio PT W/Inr 06/19/2014 [facility] 1.5 Normalized Ratio PT W/Inr 06/12/2014 [facility] 2.3 Normalized Ratio PT W/Inr 06/05/2014 [facility] 2.1 Normalized Ratio PT W/Inr 05/29/2014 [facility] 2.1 Normalized Ratio PT W/Inr 05/22/2014 [facility] 3.4 Normalized Ratio PT W/Inr 05/19/2014 [facility] 3.1 Normalized Ratio PT W/Inr 05/09/2014 [facility] 1.4 Normalized Ratio Basic Metabolic 03/30/2014 [facility] Glucose 77 mg/dL 74-106 Panel [address] [place] [address] [phone] BUN 25 mg/dL High 7-18 Creatinine 1.8 mg/dL High 0.6-1.3 Glom Filtration Rate, Estimate 29 mL/min >60 If 35 mL/min >60 35 BUN/Creat 13.8 ratio Sodium 137 mmol/L 136-145 Potassium 4.1 mmol/L 3.5-5.1 Chloride 101 mmol/L 98-107 Carbon Dioxide 28 mmol/L 21-32 Anion Gap 12 mEq/L 8-16 Calcium 9.4 mg/dL 8.5-10.1 Laboratory test 03/30/2014 [facility] Magnesium 1.8 mg/dL 1.8-2.4 finding [address] [place], [place] [address] [phone] Basic Metabolic 2014 [facility] Glucose 127 mg/dL High 76-115 Panel [address] [place] [address] [phone] BUN 42 mg/dL High 5-23 Creatinine 2.4 mg/dL High 0.5-1.4 Glom Filtration Rate, Estimate 21 mL/min >60 If 25 mL/min >60 36 BUN/Creat 17.5 ratio Sodium 136 mmol/L 136-145 Potassium 4.4 mmol/L 3.5-5.1 Chloride 98 mmol/L 98-107 Carbon Dioxide 31 mEq/L High 18-29 Anion Gap 11 mEq/L 8-16 Calcium 9.8 mg/dL 8.5-10.1 Protime 2014 [facility] Protime 31.8 seconds High 12.1-14.9 [address] [place], [place] [id number] [phone] Inr 3.2 High 0.9-1.1 37 Laboratory test 09/07/2013 [facility] Temporal Artery See Note 38 finding [address] [facility] Biopsy [place], [place] [id number] [phone] Basic Metabolic 03/15/2013 [facility] Glucose 105 mg/dL 76-115 Panel [address] [place] [address] [phone] BUN 28 mg/dL High 5-23 Creatinine 1.6 mg/dL High 0.5-1.4 Glom Filtration Rate, Estimate 33 mL/min >60 If 40 mL/min >60 39 BUN/Creat 17.5 ratio Sodium 139 mmol/L 136-145 Potassium 4.1 mmol/L 3.5-5.1 Chloride 99 mmol/L 98-107 Carbon Dioxide 30 mEq/L High 18-29 Anion Gap 14 mEq/L 8-16 Calcium 9.5 mg/dL 8.5-10.1 Basic Metabolic Panel 03/08/2013 [facility] Glucose 99 mg/dL 76-115 [address] [place] [address] [phone] BUN 21 mg/dL 5-23 Creatinine 1.5 mg/dL High 0.5-1.4 Glom Filtration Rate, Estimate 36 mL/min >60 If 43 mL/min >60 40 BUN/Creat 14.0 ratio Sodium 136 mmol/L 136-145 Potassium 4.1 mmol/L 3.5-5.1 Chloride 100 mmol/L 98-107 Carbon Dioxide 29 mEq/L 18-29 Anion Gap 11 mEq/L 8-16 Calcium 9.4 mg/dL 8.5-10.1 Routine Culture W/ Gram 11/10/2012 [facility] Gram Stain See Note 41 [address]ain [address] [place], [place] [id number] [phone] Aerobic Culture See Note 42 Anaerobic Culture 11/10/2012 [facility] Gram Stain; See Note 43 W/ GR Stain [address] [place] [address] [phone] Anaerobic Culture See Note 44 Anaerobic Culture 11/04/2012 CRM Gram Stain; See Note 45 W/ GR Stain [address] Anaerobic Specimen [place], [place] [id number] [phone] Anaerobic Culture See Note 46 Routine Culture W/ Gram 11/04/2012 [facility] Gram Stain See Note 47 Stain [address] [place], [place] [id number] [phone] Aerobic Culture See Note 48 Protime 10/12/2012 CRM Protime 40.2 seconds High 12.1-14.9 [address] [place] [address] [phone] Inr 4.2 High 0.9-1.1 49 PT W/Inr 10/12/2012 Off Site Lab Prothrombin Time 40.2 International Normalized Ratio 4.2 1 E56.9 I26.99 2 Performed at: - [facility] [address] [id number] Waste Treatment Operator: Coby Hauser MD, Phone: [phone] 3 I26.99 J44.1 I48.0 4 Note: Persistent reduction for 3 months or more in an eGFR <60 mL/min/1.73 m2 defines CKD. Patients with eGFR values >/=60 mL/min/1.73 m2 may also have CKD if evidence of persistent proteinuria is present. The original MDRD equation for estimated GFR is not valid for patients less than 18 years of age. Additional information may be found at www.kdoqi.org. 5 Vitamin D deficiency has been defined by the [place] [employer] and an Endocrine Society practice guideline as a level of serum 25-OH vitamin D less than 20 ng/mL (1,2). The Endocrine Society went on to further define vitamin D insufficiency as a level between 21 and 29 ng/mL (2). 1. IOM ([place] of Medicine). 2010. Dietary reference intakes for calcium and D. [place]: The National Academies Press. 2. Cj MF, Lexie MANZANARES, Mario Alberto MONTENEGRO, et al. Evaluation, treatment, and prevention of vitamin D deficiency: an Endocrine Society clinical practice guideline. JCEM. 2010; 96(7):1911-30. Performed at: RN - [facility] [address] [id number] Waste Treatment Operator: Coby Hauser MD, Phone: [phone] 6 Vitamin D deficiency has been defined by the [place] [employer] and an Endocrine Society practice guideline as a level of serum 25-OH vitamin D less than 20 ng/mL (1,2). The Endocrine Society went on to further define vitamin D insufficiency as a level between 21 and 29 ng/mL (2). 1. IOM ([place] of [employer]). 2010. Dietary reference intakes for calcium and D. [place]: The National AcademPhishLabs Press. 2. Cj MF, Lexie MANZANARES, Mario Alberto MONTENEGRO, et al. Evaluation, treatment, and prevention of vitamin D deficiency: an Endocrine Society clinical practice guideline. JCEM. 2010; 96(7):1911-30. Performed at: - [facility] [address] [id number] Waste Treatment Operator: Coby Hauser MD, Phone: [phone] NEGATIVE No mutation identified. Comment: A point mutation ([id number]) in the factor II (prothrombin) gene is the second most common cause of inherited thrombophilia. The incidence of this mutation in the [place] population is about 2% and in the population it is approximately 0.5%. This mutation is rare in the and population. Being heterozygous for a prothrombin mutation increases the risk for developing venous thrombosis about 2 to 3 times above the general population risk. Being homozygous for the prothrombin gene mutation increases the relative risk for venous thrombosis further, although it is not yet known how much further the risk is increased. In women heterozygous for the prothrombin gene mutation, the use of estrogen containing oral contraceptives increases the relative risk of venous thrombosis about 16 times and the risk of developing cerebral thrombosis is also significantly increased. In the prothrombin gene mutation increases risk for venous thrombosis and may increase risk for stillbirth, placental abruption, pre-eclampsia and growth restriction. If the patient possesses two or more congenital or acquired thrombophilic risk factors, the risk for thrombosis may rise to more than the sum of the risk ratios for the individual mutations. This assay detects only the prothrombin [id number] mutation and does not measure genetic abnormalities elsewhere in the genome. Other thrombotic risk factors may be pursued through systematic clinical laboratory analysis. These factors include the R506Q (Leiden) mutation in the Factor V gene, plasma homocysteine levels, as well as testing for deficiencies of antithrombin III, protein C and protein S. Genetic Counselors are available for health care providers to discuss results at [phone] [phone]). Methodology: DNA analysis of the Factor II gene was performed by PCR amplification followed by restriction analysis. The diagnostic sensitivity is >99% for both. All the tests must be combined with clinical information for the most accurate interpretation. Molecular-based testing is highly accurate, but as in any laboratory test, diagnostic errors may occur. This test was developed and its performance characteristics determined by [facility]. It has not been cleared or approved by the Food and Drug Administration. Poort SR, et al. Blood. 1996; 88:9777-2775. Desmond CERVANTES. Circulation. 2004; 110:e15-e18. Carmelita I, et al. Arterioscler Thromb Vasc Biol. 1999; 19:700-703. 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 Compound heterozygosity for the C677T and U2513T variants is unlikely to be of clinical significance, based on consensus of published reports. This combination of results, however, may be associated with increased risk for the development of hyperhomocysteinemia when the individual is deficient in folate, vitamin B6, or vitamin B12. A fasting homocysteine level should be measured. This genotype alone in the absence of hyperhomocysteinemia, does not increase risk of venous thrombosis, coronary artery disease or recurrent loss. However, hyperhomocysteinemia may also occur due to mutations in enzymes other than MTHFR that are involved in homocysteine metabolism, or arise due to acquired factors. In the evaluation of vascular and obstetric risk, consider measuring fasting homocysteine. Additional risk factors may be detected through systematic clinical laboratory analysis. Methylenetetrahydrofolate reductase (MTHFR) is a dominguez enzyme in the folate pathway and is responsible for the metabolism of homocysteine. There are two common variants in the MTHFR gene, c.655c>T (p.Xlg937Kyhy), referred to as C677T, and c.1286A>C (p.Mrn251Vmc), referred to as M6008X. Individuals homozygous for C677T (two copies of the variant), have decreased activity of the MTHFR enzyme and a predisposition to hyperhomocysteinemia, particularly when deficient in folate. Hyperhomocysteinemia is a risk factor for venous thrombosis and coronary artery disease and is associated with an increased risk of open neural tube defects. The C677T variant does not independently increase risk of these conditions in the absence of hyperhomocysteinemia. The Y7802R variant is not associated with elevated homocysteine levels unless a C677T variant is also present; however, the clinical significance of heterozygosity for both C677T and F3855A is controversial. Population data suggest that these two variants are not present on the same chromosome, but rare exceptions have been reported of triple variant MTHFR genotypes (ie. homozygous for one variant and heterozygous for the other). Homozygosity for C677T has an estimated frequency of 10% to 15% in Caucasians and 25% in Hispanics. Additional information: Dietary folic acid, B6 and B12 supplementation has been suggested to lower homocysteine levels in some people. Folic acid supplementation has been shown to reduce the occurrence of neural tube defects. Genetic counselors are available for health care providers to discuss results at [phone] [place] Methodology: DNA analysis of the MTHFR gene was performed by PCR amplification followed by restriction analysis. The diagnostic sensitivity is >99% for both. Molecular-based testing is highly accurate, but as in any laboratory test, rare diagnostic errors may occur. All test results must be combined with clinical information for the most accurate interpretation. This test was developed and its performance characteristics determined by [facility]. It has not been cleared or approved by the Food and Drug Administration. References: Kelvin GRIER, Harish Q. Am J Epidemiol 2000; 151(9):862-877. Mahsa MM, Nando JA. Arch Pathol Lab Med 2007; 131(6):872-884. Frosst P et al. Juliette Nancy 1995; 10(1):111-113. Hickey SE et al. Nancy Med 2013; 15(2):153-156. Ridgefield C et al. Obstet Gynecol 2011; 118(3):730-740. Sven B et al. Eur J Epidemiol 2013; 28(8):621-647. Kaitlin White, PhD, FACMG Antoinette Salter, PhD, FAC Anneliese Faulkner M.S., PhD, FAC Marni Richey, PhD, FAC Yola Huerta, PhD, FAC Colin Salter, PhD, [facility] Performed at: [address] [id number] Waste Treatment Operator: Marzena Day MD, Phone: [phone] Negative: <15 Indeterminate: 15 - 20 Low-Med Positive: >20 - 80 High Positive: >80 10 Negative: <13 Indeterminate: 13 - 20 Low-Med Positive: >20 - 80 High Positive: >80 11 Negative: <12 Indeterminate: 12 - 20 Low-Med Positive: >20 - 80 High Positive: >80 Performed at: [address] [id number] Waste Treatment Operator: Coby Hauser MD, Phone: [phone] Negative <1:80 Borderline 1:80 Positive >1:80 Performed at: [address] [id number] Waste Treatment Operator: Teofilo Landin MD, Phone: [phone] Performed at: [address] [id number] Waste Treatment Operator: Coby Hauser MD, Phone: [phone] Performed at: [address] [id number] Waste Treatment Operator: Teofilo Landin MD, Phone: [phone] 13 09/24/18 0708: DRVVT previously reported as: 77.9 H sec Amended result called to: [] - 09/24/18 at 0708 14 09/28/18 0740: Note: previously reported as: . Amended result called to: [] - 09/28/18 at 0740 No lupus anticoagulant was detected. These results are consistent with specific inhibitors to one or more common pathway factors (X, V, II or fibrinogen). 15 Result: Negative (no mutation found) Factor V Leiden is a specific mutation (R506Q) in the factor V gene that is associated with an increased risk of venous thrombosis. Factor V Leiden is more resistant to inactivation by activated protein C. As a result, factor V persists in the circulation leading to a mild hyper- coagulable state. The Leiden mutation accounts for 90% - 95% of APC resistance. Factor V Leiden has been reported in patients with deep vein thrombosis, pulmonary embolus, central retinal vein occlusion, cerebral sinus thrombosis and hepatic vein thrombosis. Other risk factors to be considered in the workup for venous thrombosis include the L75490W mutation in the factor II (prothrombin) gene, protein S and C deficiency, and antithrombin deficiencies. Anticardiolipin antibody and lupus anticoagulant analysis may be appropriate for certain patients, as well as homocysteine levels. [facility] for information on how to order additional testing if desired. Genetic counselors are available for health care providers to discuss results at [phone] Methodology: DNA analysis of the Factor V gene was performed by allele- specific PCR. The diagnostic sensitivity and specificity is >99% for both. Molecular-based testing is highly accurate, but as in any laboratory test, diagnostic errors may occur. All test results must be combined with clinical information for the most accurate interpretation. This test was developed and its performance characteristics determined by [facility]. It has not been cleared or approved by the Food and Drug Administration. References: Precious Antonio (1995). Clin Lab Med 16:169-186. Kaitlin White, PhD, FACMG Antoinette Salter, PhD, FACMG Anneliese Faulkner M.S., PhD, FACMG Marni Richey, PhD, FACMG Yola Huerta, PhD, FACMG Colin Salter PhD, FACMG Performed at: [facility] [address] [place], [place] [id number] Waste Treatment Operator: Marzena Day MD, Phone: [phone] Performed at: [address], [place] [id number] Waste Treatment Operator: Teofilo Landin MD, Phone: [phone] 17 Note: Persistent reduction for 3 months or more in an eGFR <60 mL/min/1.73 m2 defines CKD. Patients with eGFR values >/=60 mL/min/1.73 m2 may also have CKD if evidence of persistent proteinuria is present. The original MDRD equation for estimated GFR is not valid for patients less than 18 years of age. Additional information may be found at www.[email or web address]. 18 CAP/PE 19 THERAPEUTIC INR RANGE: 2.0 - 3.0 DVT, Pulmonary embolus, prophylaxis against venous thrombosis or systemic embolization in high risk patients. 2.5 - 3.5 Mechanical heart valves 20 Comments to cnc machine operator: make sure with nurse you are not drawing heparin Specimen Comments: pt on heparin gtt. infusing in rt arm. Is patient on heparin protocol? Y Is patient on anticoagulants? Heparin 21 Comments to cnc machine operator: DO NOT DRAW ON ARM WITH HEPARIN GTT. USE LT ARM Is patient on heparin protocol? Y Is patient on anticoagulants? Heparin 22 Note: Persistent reduction for 3 months or more in an eGFR <60 mL/min/1.73 m2 defines CKD. Patients with eGFR values >/=60 mL/min/1.73 m2 may also have CKD if evidence of persistent proteinuria is present. The original MDRD equation for estimated GFR is not valid for patients less than 18 years of age. Additional information may be found at www.[email or web address]. 23 Comments to cnc machine operator: do not draw until heparin is held Is patient on heparin protocol? Y Is patient on anticoagulants? Heparin 24 CHECKED CALLED GULSHAN IN ICU HIGH PTT AT 0204 08/29/18 by TEMP.[facility] Is patient on heparin protocol? Y 25 Please Note: A POSITIVE result for influenza A and/or B antigen does not rule out a co-infection with other pathogens or identify any specific influenza A virus subtype. A NEGATIVE result for influenza A and/or B antigen does not preclude influenza virus infection and should not be the sole basis for treatment or other management decisions, since the antigen present in the specimen may be below the detection limit of the test. A NEGATIVE result is PRESUMPTIVE and it is recommended these results be confirmed by virus culture or an FDA-cleared influenza A and B molecular assay. Method: BD Veritor Chromatographic immunoassay 26 THERAPEUTIC INR RANGE: 2.0 - 3.0 DVT, Pulmonary embolus, prophylaxis against venous thrombosis or systemic embolization in high risk patients. 2.5 - 3.5 Mechanical heart valves 27 Note: Persistent reduction for 3 months or more in an eGFR <60 mL/min/1.73 m2 defines CKD. Patients with eGFR values >/=60 mL/min/1.73 m2 may also have CKD if evidence of persistent proteinuria is present. The original MDRD equation for estimated GFR is not valid for patients less than 18 years of age. Additional information may be found at www.[email or web address]. 28 THERAPEUTIC INR RANGE: 2.0 - 3.0 DVT, Pulmonary embolus, prophylaxis against venous thrombosis or systemic embolization in high risk patients. 2.5 - 3.5 Mechanical heart valves 29 THERAPEUTIC INR RANGE: 2.0 - 3.0 DVT, Pulmonary embolus, prophylaxis against venous thrombosis or systemic embolization in high risk patients. 2.5 - 3.5 Mechanical heart valves 30 Note: Persistent reduction for 3 months or more in an eGFR <60 mL/min/1.73 m2 defines CKD. Patients with eGFR values >/=60 mL/min/1.73 m2 may also have CKD if evidence of persistent proteinuria is present. The original MDRD equation for estimated GFR is not valid for patients less than 18 years of age. Additional information may be found at [email or web address]. 31 SPECIMEN DESCRIPTION ABSCESS SPECIAL REQUESTS NONE GRAM STAIN NO WHITE BLOOD CELLS NO BACTERIA CULTURE RESULTS RARE DIPHTHEROIDS REPORT STATUS FINAL 12/17/2014 Unless otherwise specified, testing performed by [facility] [address] [place] [id number] 32 Concerning GFR Guidelines for Americans: Normal function or mild renal disease, if clinically at risk: >/=60 mL/min Moderately decreased: 30-59 Severely decreased: 15-29 Renal failure: <15 33 96 Electrolytes confirmed by repeat. 34 Concerning GFR Guidelines: Normal function or mild renal disease, if clinically at risk: >/=60 mL/min Moderately decreased: 30-59 Severely decreased: 15-29 Renal failure: <15 Glomerular Filtration Rate (GFR) is estimated based on the MDRD equation, which assumes a steady state for creatinine as recommended by the National Kidney Disease Education Program in conjunction with the National Institutes of Health and the National Kidney Foundation. Clinical conditions in which it may be necessary to measure GFR by using clearance methods include extremes of age and body size, severe malnutrition or obesity, diseases of skeletal muscle, paraplegia or quadriplegia, vegetarian diet, rapidly changing kidney function, and calculation of the dose of potentially toxic drugs that are excreted by the kidneys. 35 Note: Persistent reduction for 3 months or more in an eGFR <60 mL/min/1.73 m2 defines CKD. Patients with eGFR values >/=60 mL/min/1.73 m2 may also have CKD if evidence of persistent proteinuria is present. The original MDRD equation for estimated GFR is not valid for patients less than 18 years of age. Additional information may be found at www.[email or web address]. 36 Note: Persistent reduction for 3 months or more in an eGFR <60 mL/min/1.73 m2 defines CKD. Patients with eGFR values >/=60 mL/min/1.73 m2 may also have CKD if evidence of persistent proteinuria is present. The original MDRD equation for estimated GFR is not valid for patients less than 18 years of age. Additional information may be found at www.[email or web address]. 37 THERAPEUTIC INR RANGE: 2.0 - 3.0 DVT, Pulmonary embolus, prophylaxis against venous thrombosis or systemic embolization in high risk patients. 2.5 - 3.5 Mechanical heart valves 38 This is a corrected report. Any previous versions are stored internally and are available if necessary. OPERATION/PROCEDURE Right temporal artery biopsy DIAGNOSIS: "RIGHT TEMPORAL ARTERY, BIOPSY": NO EVIDENCE OF GRANULOMATOUS DISEASE (TEMPORAL ARTERITIS). ESSENTIALLY WITHIN NORMAL LIMITS. /[facility] " GROSS Received in formalin labeled, "RIGHT TEMPORAL ARTERY". The specimen consists of a vascular tissue measuring 2.2 cm in length x 0.2 cm in diameter. Submitted in toto in one cassette (with cross sectioned). HW/clf MICROSCOPIC Sections show vessel with focal sacttered chronic inflammation, with no evidence of giant cell formation recognized. Elastic stain reveals intact interanl elastic lamina. The chronic inflammation is located in perivascular/adventitial vessel space , consistent with borderline changes. PRE OPERATIVE DIAGNOSIS Giant cell arteritis REVIEW CODE CODE: I MATI Alejo MD 09/10/13 1230 39 Note: Persistent reduction for 3 months or more in an eGFR <60 mL/min/1.73 m2 defines CKD. Patients with eGFR values >/=60 mL/min/1.73 m2 may also have CKD if evidence of persistent proteinuria is present. The original MDRD equation for estimated GFR is not valid for patients less than 18 years of age. Additional information may be found at www.[email or web address]. 40 Note: Persistent reduction for 3 months or more in an eGFR <60 mL/min/1.73 m2 defines CKD. Patients with eGFR values >/=60 mL/min/1.73 m2 may also have CKD if evidence of persistent proteinuria is present. The original MDRD equation for estimated GFR is not valid for patients less than 18 years of age. Additional information may be found at [email or web address]. 41 GRAM STAIN ! VERY FEW GRAM POSITIVE COCCI ! FEW WHITE BLOOD CELLS 42 Organism 1 ! NO PATHOGENS ISOLATED 43 GRAM STAIN ! VERY FEW GRAM POSITIVE COCCI ! FEW WHITE BLOOD CELLS 44 NO ANAEROBES ISOLATED 45 GRAM STAIN ! MANY GRAM POSITIVE COCCI ! FEW GRAM NEGATIVE BACILLI ! MODERATE GRAM POS BACILLI SUGGESTIVE OF CORYNEBACTERIA ! FEW WHITE BLOOD CELLS 46 CULTURE SUGGESTS A MIXTURE OF ORGANISMS. PLEASE RESUBMIT IF CLINICALLY INDICATED. 47 GRAM STAIN ! MANY GRAM POSITIVE COCCI ! FEW GRAM NEGATIVE BACILLI ! FEW GRAM POS BACILLI SUGGESTIVE OF CORYNEBACTERIA ! FEW WHITE BLOOD CELLS 48 CULTURE SUGGESTS A MIXTURE OF ORGANISMS. PLEASE RESUBMIT IF CLINICALLY INDICATED. 49 THERAPEUTIC INR RANGE: 2.0 - 3.0 DVT, Pulmonary embolus, prophylaxis against venous thrombosis or systemic embolization in high risk patients. 2.5 - 3.5 Mechanical heart valves Procedures Date Code Description Status 11/03/2018 28057 EKG-Tracing And Report Completed 05/07/2018 10273 EKG-Tracing And Report Completed 11/18/2017 27725 Echocardiogram Complete Completed 05/06/2017 31792 EKG-Tracing And Report Completed 01/15/2017 60818 Radiology, Both Knees Standing Completed 01/15/2017 06947 Radiologic Exam Hips Bilateral With Pelvis Minimum 5 Completed Views 09/24/2016 14656 EKG-Tracing And Report Completed 03/27/2016 31578 EKG-Tracing And Report Completed 01/17/2016 72723 Radiology, Both Knees Standing Completed 01/17/2016 97143 Radiologic Exam Hips Bilateral With Pelvis Minimum 5 Completed Views 11/14/2015 11077 Echocardiogram Complete Completed 07/23/2015 45174 EKG-Tracing And Report Completed 04/12/2015 41748 EKG-Tracing And Report Completed 03/29/2015 49221 Radiology, Knee 3 Views Completed 01/17/2015 52109 Radiology, Both Knees Standing Completed 01/17/2015 32003 Radiology, Hips Min. 2 Views, Including Pelvis Completed 01/17/2015 10519 Radiology, Hip Complete 2 Views Completed 01/17/2015 19996 Radiology, Hip Complete 2 Views Completed 01/17/2015 61990 Radiology, Pelvis 1 Or 2 Views Completed 03/14/2014 93997 IV Push Single Or Initial Substance/Drug Completed 03/14/2014 95084 EKG-Tracing And Report Completed 01/05/2014 27685 Echocardiogram Complete Completed 11/04/2012 32622 Debridement, skin, full thickness Completed 10/28/2012 02350 Stress Test Interpre And Report Only Completed 10/28/2012 28436 Stress Test Physician Super Only Completed 10/28/2012 11074 Stress Test Physician Super Only Completed 10/28/2012 89294 Myocardial Imaging Tomographic Multiple Study AT Rest Completed Or Stress 10/18/2012 14422 EKG-Tracing And Report Completed 10/18/2012 49382 EKG-Tracing And Report Completed 10/15/2012 50134 Cardioversion External Completed 10/15/2012 25950 Transesophageal Echocardiogram Completed 10/15/2012 45913 Doppler Echocardiogram Complete Completed 10/15/2012 60738 Doppler ECHO Color Flow Mapping Completed 10/12/2012 24757 EKG-Tracing And Report Completed 10/12/2012 76305 EKG-Tracing And Report Completed 09/17/2012 00071 Echocardiogram Complete Completed 10/24/2011 51571 Echocardiogram Complete Completed 04/05/2011 25860102 Mammogram Completed 12/05/2010 62817 Total Hip Arthroplasty acetabular & proximal femoral Completed prosthetic 06/03/2005 24502 Total Knee Arthroplasty medial&lateral compartments Completed w/wo wood res 03/03/2005 63563 Asp./Injection major joint Completed 11/03/2004 [id number] Colonoscopy Completed Encounters Type Date Location Provider Dx Diagnosis Office Visit 12/08/2018 Physical Medicine Jackie Canada MD M47.27 Other spondylosis 9:30a & Infectious with radiculopathy, Disease lumbosacral region M21.371 Foot drop, right foot Office Visit 11/03/2018 Cardiology Babs Pritchard I50.32 Chronic diastolic 2:20p Office [place], MSN, (congestive) heart DROP FORGER failure I48.0 Paroxysmal atrial fibrillation I26.99 Other pulmonary embolism without acute cor pulmonale Office Visit 09/20/2018 1:00p Oncology Office [place], I26.99 Other pulmonary Sherry, DO embolism without acute cor pulmonale I26.99 Other pulmonary embolism without acute cor pulmonale E56.9 Vitamin deficiency, unspecified E56.9 Vitamin deficiency, unspecified Z79.01 FDC (current) use of anticoagulants Z79.01 FDC (current) use of anticoagulants Office Visit 05/07/2018 1:40p Cardiology Mark Anthony Mckeon R01.1 Cardiac murmur, Office Harmeet Terrazas, [facility] unspecified I50.32 Chronic diastolic (congestive) heart failure I48.0 Paroxysmal atrial fibrillation J44.9 Chronic obstructive pulmonary disease, unspecified Office Visit 11/04/2017 Cardiology Babs Pritchard I48.0 Paroxysmal atrial 9:40a Office CAROLIN Sharif, fibrillation DROP FORGER I50.32 Chronic diastolic (congestive) heart failure I35.0 Nonrheumatic aortic (valve) stenosis I10 Essential (primary) hypertension Office Visit 05/06/2017 Cardiology Mark Anthony Mckeon I48.0 Paroxysmal atrial 1:40p Office Harmeet Terrazas, FACC fibrillation I50.32 Chronic diastolic (congestive) heart failure I35.0 Nonrheumatic aortic (valve) stenosis Office Visit 01/15/2017 1:15p Orthopaedic Office Freedom Rondon, Z47.1 Aftercare M.D. following joint replacement surgery Office Visit 09/24/2016 9:00a Cardiology Office Babs Pritchard I48.0 Paroxysmal atrial Simonetta, fibrillation MSN, DROP FORGER R07.9 Chest pain, unspecified I50.32 Chronic diastolic (congestive) heart failure J44.9 Chronic obstructive pulmonary disease, unspecified I10 Essential (primary) hypertension Office Visit 03/27/2016 Cardiology Mark Anthony Mckeon I48.0 Paroxysmal atrial 10:00a Office Harmeet Terrazas, [facility] fibrillation I50.32 Chronic diastolic (congestive) heart failure J44.9 Chronic obstructive pulmonary disease, unspecified I34.0 Nonrheumatic mitral (valve) insufficiency Office Visit 01/17/2016 1:15p Orthopaedic Office Freedom Rondon Z47.1 Aftercare M.D. following joint replacement surgery Office Visit 12/20/2015 10:20a Cardiology Office Babs Pritchard I48.0 Paroxysmal atrial Simonetta, fibrillation MSN, DROP FORGER I50.30 Unspecified diastolic (congestive) heart failure I10 Essential (primary) hypertension J44.9 Chronic obstructive pulmonary disease, unspecified I34.0 Nonrheumatic mitral (valve) insufficiency Office Visit 11/29/2015 Cardiology Babs Pritchard I48.0 Paroxysmal atrial 2:20p Office CAROLIN Sharif, fibrillation DROP FORGER I50.30 Unspecified diastolic (congestive) heart failure I10 Essential (primary) hypertension J44.9 Chronic obstructive pulmonary disease, unspecified I34.0 Nonrheumatic mitral (valve) insufficiency Office Visit 08/20/2015 Cardiology Mark Anthony Mckeon I48.0 Paroxysmal atrial 3:00p Office Harmeet Terrazas, [facility] fibrillation R01.1 Cardiac murmur, unspecified I10 Essential (primary) hypertension Office Visit 07/19/2015 Cardiology Babs Pritchard I48.0 Paroxysmal atrial 1:00p Office Kole MSN, fibrillation DROP FORGER I50.32 Chronic diastolic (congestive) heart failure I10 Essential (primary) hypertension I26.99 Other pulmonary embolism without acute cor pulmonale Office Visit 04/12/2015 Cardiology Mark Anthony Mckeon I48.0 Paroxysmal atrial 10:10a Office Harmeet Terrazas, FACC fibrillation Z79.01 FDC (current) use of anticoagulants Office Visit 03/29/2015 2:30p Orthopaedic Office Freedom Rondon, Z47.1 Aftercare M.D. following joint replacement surgery W19.xxxA Unspecified fall, initial encounter Office Visit 01/17/2015 10:00a Orthopaedic Office Freedom Rondon, V54.81 Aftercare M.D. 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, FACC Disorder 427.31 Atrial Fibrillation 428.0 Congestive Heart Failure Unspecified Office Visit 06/08/2014 3:40p Cardiology Office Babs Pritchard 424.1 Aortic Valve CAROLIN Sharif, Disorder DROP FORGER 415.19 Pulmonary Embolism And Infarction Other 428.0 Congestive Heart Failure Unspecified Office Visit 05/08/2014 Cardiology Mark Anthony Mckeon 427.31 Atrial 3:20p Office Harmeet Terrzaas, FACC Fibrillation 401.1 Hypertension Benign 424.1 Aortic Valve Disorder 415.19 Pulmonary Embolism And Infarction Other Office Visit 04/06/2014 2:20p Cardiology Babs Pritchard 428.0 Congestive Heart Office CAROLIN Sharif, Failure DROP FORGER Unspecified 496 COPD Airway Obstruction Chronic Not Class Elsewhere 427.31 Atrial Fibrillation 401.1 Hypertension Benign Office Visit 03/30/2014 9:30a Cardiology Mark Anthony Mckeon 428.0 Congestive Heart Office Harmeet Terrazas, FACC Failure Unspecified 427.31 Atrial Fibrillation Office Visit 03/14/2014 9:30a Cardiology Mark Anthony Mckeon 428.0 Congestive Heart Office Harmeet Terrazas, FACC Failure Unspecified 427.31 Atrial Fibrillation 401.1 Hypertension Benign 424.1 Aortic Valve Disorder Office Visit 01/31/2014 10:00a Cardiology Mark Anthony Mckeon 428.0 Congestive Heart Office Harmeet Terrazas, FACC Failure Unspecified 427.31 Atrial Fibrillation 401.1 Hypertension Benign Office Visit 01/04/2014 11:32a [place] Yenifer, 428.0 Congestive Heart [facility] Harmeet Yang Failure Center Unspecified 599.0 UTI Urinary Tract Infection Site Not Spec Office Visit 10/19/2013 Surgical Millie, 562.10 Diverticulosis 9:30a Office Kojo Pham Colon W/O M.DElizabeth Hemorrhage V16.0 History Family Malignant Neoplasm Gastrointestinal Tract 535.40 Gastritis Other Spec W/O Hemorrhage 793.4 Xray & Other Exam Gastrointestinal Tract Abnormal Findings 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 Office Visit 09/07/2013 9:00a Cardiology Babs Pritchard 428.0 Congestive Heart Office CAROLIN Sharif, Failure DROP FORGER Unspecified 427.31 Atrial Fibrillation 401.1 Hypertension Benign 415.19 Pulmonary Embolism And Infarction Other 588.9 Renal Function Impairment Disorders Unspec Office Visit 03/09/2013 11:00a Cardiology Babs Pritchard 428.0 Congestive Heart Office CAROLIN Sharif, Failure DROP FORGER Unspecified 427.31 Atrial Fibrillation 401.1 Hypertension Benign 415.19 Pulmonary Embolism And Infarction Other Office Visit 03/02/2013 9:00a Cardiology Babs Pritchard 428.0 Congestive Heart Office CAROLIN Sharif, Failure DROP FORGER Unspecified 427.31 Atrial Fibrillation 401.1 Hypertension Benign 415.19 Pulmonary Embolism And Infarction Other Office Visit 11/10/2012 10:45a Orthopaedic Massimo Iqbal 891.0 Open Wound Knee Office MD Tommy, FACS Leg (Except Thigh) & Ankle W/O Complication 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 Office Visit 11/04/2012 11:00a Orthopaedic Office Massimo Iqbal 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 MD Tommy, FACS 891.0 Open Wound Knee Leg (Except Thigh) & Ankle W/O Complication Office Visit 11/01/2012 Cardiology Mark Anthony Mckeon 427.31 Atrial 11:00a Office Harmeet Terrazas, [facility] Fibrillation 458.9 Hypotension Unspec Office Visit 10/18/2012 Cardiology Babs Pritchard 427.31 Atrial 3:00p Office CAROLIN Sharif, Fibrillation DROP FORGER 427.31 Atrial Fibrillation 786.50 Pain Chest Unspec 786.50 Pain Chest Unspec 401.1 Hypertension Benign 401.1 Hypertension Benign 415.19 Pulmonary Embolism And Infarction Other 415.19 Pulmonary Embolism And Infarction Other Office Visit 10/18/2012 9:45a Orthopaedic Massimo Iqbal 891.0 Open Wound Knee Office MD Tommy, FACS Leg (Except Thigh) & Ankle W/O Complication 709.8 Skin Disorders Other Spec 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 924.00 Contusion Thigh Office Visit 10/12/2012 Cardiology Babs Pritchard 427.31 Atrial 10:20a Office CAROLIN Sharif, Fibrillation DROP FORGER 458.9 Hypotension Unspec 415.19 Pulmonary Embolism And Infarction Other Office Visit 10/11/2012 9:00a Orthopaedic Massimo Iqbal 891.0 Open Wound Knee Office MD Tommy, FACS Leg (Except Thigh) & Ankle W/O Complication 709.8 Skin Disorders Other Spec 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 924.00 Contusion Thigh Office Visit 10/04/2012 10:00a Orthopaedic Massimo Iqbal 891.0 Open Wound Knee Office MD Tommy, FACS Leg (Except Thigh) & Ankle W/O Complication 709.8 Skin Disorders Other Spec 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
--- OUTSIDE RECORDS SUMMARY | 2018-12-31 12:37 | XMS REPORT | Continuity of Care Document ---
:1935 External Reference #:[id number] Author Name Kojo Saini MD Address [address] [place] [address] Care Team Providers Name Role Phone Shane Reece, Care Team Information Insurance Examining Clerk Unavailable Shane Reece, Primary Care Physician Unavailable Payers Date Identification Numbers Payment Provider Subscriber Effective: 2018 Policy Number: [id number] [employer] [place] K Chiquisser PayID: [id number] [address] [place] [address] Policy Number: [id number] [facility] Stisser PayID: [id number] [address] [place] [address] Expires: 2018 Policy Number: [id number] [employer] [place] Juneann K Chiquisser PayID: [id number] [address] [place] [address] Problems Active Problems Provider Date Allergic rhinitis due to pollen LAURA Brennan Onset: 2015 Allergic rhinitis LAURA Brennan Onset: 11/29/2015 Chronic obstructive lung disease LAURA Brennan Onset: 2015 Posterior rhinorrhea LAURA Brennan Onset: 06/05/2016 Uncomplicated moderate persistent oKjo Saini MD Onset: 11/25/2016 asthma Family History Date Family Member(s) Observation Comments General Unknown Social History Type Date Description Comments Sex Unknown Smoke-Free Home is smoke-free Tobacco Use Start: Unknown Patient has never smoked Smoking Status Reviewed: 12/07/18 Patient has never smoked Allergies, Adverse Reactions, Alerts Active Allergies Reaction Severity Comments Date Minocycline HCL 05/30/2014 Sulfa (Sulfonamide Antibiotics) 05/30/2014 Zithromax 05/30/2014 Plaquenil 05/30/2014 Cats 11/30/2012 Medications Active Medications SIG Qnty Indications Ordering Provider Date Albuterol Sulfate Inhale 3 2Boxes J45.40 Christopher A. milliliters (2.5 MD Parveen 8 (2.5mg/3ML) 0.083% mg) by Nebulizer nebulization route Q4 hours as needed. Ventolin HFA Inhale 2 puffs by 1inhaler J44.9 Christopher A. inhalation route MD Parveen 6 108(90Base) mcg/Act every 4 hours as Aerosol needed Spiriva Respimat inhale 2 puffs (5 12gm Christopher A. mcg) by inhalation MD Parveen 5 2.5mcg/Act Aerosol route once daily at the same time each day Nitrofurantoin Take One Capsule Unknown Monohydrate/Macrocry By Mouth Twice A 0 stals Day 100mg Capsules Amitriptyline HCL Shane Reece Az, [place] 10mg Tablets Eliquis Shane Reece 5mg Tablets Az 0 Fluticasone spray 2 sprays in 15.800ml J30.1 opher A. Propionate each nostril daily MD Parveen 0 50mcg/Act Suspension Albuterol Sulfate Unknown 0 Dulera 2 puffs twice a 8.800gm Christopher A. 200-5mcg/Act day MD Parveen 0 Aerosol Sotalol HCL Unknown 0 Furosemide take 1 tablet (40 Unknown 40mg mg) by oral route 0 Tablets once daily Lyrica take 1 capsule (75 Unknown 75mg Capsules mg) by oral route 0 2 times per day History Medications Prednisone Take 3 tablets 30tabs J45.40 Christopher A. 06/08/2018 - 10mg by mouth twice a MD Parveen 07/12/2018 Tablets day for 5 days. Take with food. Breo Ellipta inhale one puff 1inhaler Kojo Mcgee 12/23/2016 - once a day MD Parveen 06/09/2017 200-25mcg/Inh Aerosol Nasonex [place] 2 sprays 3units J30.1 Kojo Mcgee 11/29/2015 - 50mcg/Act in each nostril MD Parveen 11/25/2016 Suspension by intranasal route once daily. Xyzal take 1 tablet (5 Unknown 10/12/2014 - 5mg Tablets mg) by oral 11/29/2015 route once daily prn Spironolactone Unknown - 25mg 11/25/2016 Tablets Tramadol Unknown - Hydrochloride/Acetam 12/08/2017 inophen 37.5-325mg Tablets Triamcinolone 2 puffs each 33gm Kojo Mcgee - Acetonide nostril twice a MD Parveen 06/09/2017 55mcg/Act day Aerosol Amitriptyline HCL daily Unknown - 06/08/2018 10mg Tablets Warfarin Shane Orellana - 2.5mg Az 12/07/2018 Tablets Enoxaparin Sodium Mark Anthony Mckeon - MD [place] 06/08/2018 100mg/ml Solution Vital Signs Date Vital Result Comment 12/07/2018 1:10pm BP Systolic 126 mmHg BP Diastolic 68 mmHg Height 63 inches 5'3" Weight 202.00 lb BMI (Body Mass Index) 35.8 kg/m2 Heart Rate 68 /min Respiratory Rate 18 /min Body Temperature 97.5 F O2 % BldC Oximetry 95 % 06/08/2018 11:07am BP Systolic 130 mmHg BP Diastolic 62 mmHg Height 63 inches 5'3" Weight 208.00 lb BMI (Body Mass Index) 36.8 kg/m2 Heart Rate 63 /min Respiratory Rate 22 /min O2 % BldC Oximetry 97 % 12/08/2017 10:24am BP Systolic 144 mmHg BP Diastolic 76 mmHg Height 63 inches 5'3" Weight 210.00 lb BMI (Body Mass Index) 37.2 kg/m2 Heart Rate 67 /min Respiratory Rate 19 /min Body Temperature 96.7 F O2 % BldC Oximetry 97 % 06/09/2017 9:44am BP Systolic 128 mmHg BP Diastolic 72 mmHg Height 63 inches 5'3" Weight 212.00 lb BMI (Body Mass Index) 37.6 kg/m2 Heart Rate 70 /min Respiratory Rate 18 /min Body Temperature 97.3 F O2 % BldC Oximetry 97 % 11/25/2016 11:30am BP Systolic 116 mmHg BP Diastolic 74 mmHg Height 63 inches 5'3" Weight 214.00 lb BMI (Body Mass Index) 37.9 kg/m2 Heart Rate 70 /min Respiratory Rate 11 /min Body Temperature 97.6 F O2 % BldC Oximetry 96 % 06/05/2016 10:29am BP Systolic 124 mmHg BP Diastolic 73 mmHg Height 63 inches 5'3" Weight 230.00 lb BMI (Body Mass Index) 40.7 kg/m2 Heart Rate 60 /min Respiratory Rate 16 /min Body Temperature 97.1 F O2 % BldC Oximetry 91 % 11/29/2015 11:39am BP Systolic 107 mmHg BP Diastolic 55 mmHg Height 64 inches 5'4" Weight 218.00 lb BMI (Body Mass Index) 37.4 kg/m2 Heart Rate 56 /min Respiratory Rate 18 /min Results Test Date Facility Test Result H/L Range Note Order 06/08/2018 [facility] Nitric Oxide <pending> PFT Supplies <pending> PFT With Bronchodilator <pending> Order 12/08/2017 [facility] Nitric Oxide <pending> PFT Supplies <pending> PFT With Bronchodilator <pending> Procedures Date Code Description Status 12/07/2018 04828 Bronchodilation Responsiveness Spirometry Pre/Post Completed Bronchodil Adm 06/08/2018 62285 Nitric Oxide Gas Determination Completed 06/08/2018 79576 Bronchodilation Responsiveness Spirometry Pre/Post Completed Bronchodil Adm 12/08/2017 10281 Nitric Oxide Gas Determination Completed 12/08/2017 89634 Nitric Oxide Gas Determination Completed 12/08/2017 31260 Bronchodilation Responsiveness Spirometry Pre/Post Completed Bronchodil Adm 12/08/2017 57956 Bronchodilation Responsiveness Spirometry Pre/Post Completed Bronchodil Adm 06/09/2017 22138 Nitric Oxide Gas Determination Completed 06/09/2017 69970 Bronchodilation Responsiveness Spirometry Pre/Post Completed Bronchodil Adm 11/25/2016 54558 Nitric Oxide Gas Determination Completed 11/25/2016 96741 Bronchodilation Responsiveness Spirometry Pre/Post Completed Bronchodil Adm 06/05/2016 87515 Bronchodilation Responsiveness Spirometry Pre/Post Completed Bronchodil Adm Encounters Type Date Location Provider Dx Diagnosis Office Visit 12/07/2018 Javier Kelly J30.1 Allergic rhinitis due 1:00p Fenstermacher, RPA-C to pollen J30.89 Other allergic rhinitis J45.40 Moderate persistent asthma, uncomplicated J44.9 Chronic obstructive pulmonary disease, unspecified Office Visit 06/08/2018 10:30a Javierrenea Kelly J45.40 Moderate persistent Fenstermacher, RPA-C asthma, uncomplicated J44.9 Chronic obstructive pulmonary disease, unspecified J30.1 Allergic rhinitis due to pollen J30.89 Other allergic rhinitis Office Visit 12/08/2017 10:00a IrvingTEDDY Fuentes J45.40 Moderate persistent asthma, uncomplicated J44.9 Chronic obstructive pulmonary disease, unspecified J30.1 Allergic rhinitis due to pollen J30.89 Other allergic rhinitis Office Visit 06/09/2017 9:15a Irvingrenea Kelly J45.40 Moderate persistent Fenstermacher, RPA-C asthma, uncomplicated J44.9 Chronic obstructive pulmonary disease, unspecified J30.1 Allergic rhinitis due to pollen J30.89 Other allergic rhinitis R09.82 Postnasal drip Office Visit 11/25/2016 10:45a [place] Kojo Mcgee J44.9 Chronic obstructive Saini, MD pulmonary disease, unspecified J30.1 Allergic rhinitis due to pollen J30.89 Other allergic rhinitis J45.40 Moderate persistent asthma, uncomplicated Office Visit 06/05/2016 10:30a Javierrenea Kelly J44.9 Chronic Fenstermacher, RPA-C obstructive pulmonary disease, unspecified J30.1 Allergic rhinitis due to pollen J30.89 Other allergic rhinitis R09.82 Postnasal drip Office Visit 11/29/2015 11:30a [place] Damaris Kelly Fenstermacher, J30.1 Allergic RPA-C rhinitis due to pollen J30.89 Other allergic rhinitis J44.9 Chronic obstructive pulmonary disease, unspecified Plan of Treatment Future Appointment(s):06/14/2019 10:00 am - Damaris Kelly Fenstermachegiselle, RPA-C at Hzunywgj52/04/2019 - Damaris Kelly Fenstermachegiselle RPA-CJ30.1 Allergic rhinitis due to pollenComments:Continue Flonase as prescribed. Patient would prefer to avoid any additional prescriptions. She willcontact the office if her persistent nasal drip worsens and she decides she would like to try Azelastine nasal spray.Follow up:6 months.J30.89 Other allergic rhinitisComments:I have reviewed environmental controls for dust and dust mites. I have encouraged [facility] to implement hypoallergenic covers on the mattress and pillows, as well as a HEPA air purifier.Follow up:6 months.J45.40 Moderate persistent asthma, uncomplicatedComments:Patient with mixed asthma/COPD. Today's PFT is poor quality. Continue Dulera and Spiriva as prescribed. I have discussed the importance of using these medications daily.Follow up:6 months - w/PFT and NIOX prior to wcpqrF88.9 Chronic obstructive pulmonary disease, unspecifiedComments: Continue Dulera and Spiriva as prescribed. Continue Ventolin as needed for breakthrough coughing, wheezing, chest tightness and/or shortness of breath.Follow up:6 months.
--- OUTSIDE RECORDS SUMMARY | 2018-12-31 12:37 | XMS REPORT | Continuity of Care Document ---
:1935 External Reference #:[id number] Author Name Divina Luis Care Team Providers Name Role Phone Shane Reece, Care Team Information Hostage Negotiator Unavailable Shane Reece, Primary Care Physician Unavailable Payers Date Identification Numbers Payment Provider Subscriber Effective: 2018 Policy Number: [id number] [employer] [place] K Chiquisser PayID: [id number] [address] [place] [address] Policy Number: [id number] [facility] Stisser PayID: [id number] [address] [place] [address] Expires: 2018 Policy Number: [id number] [employer] [place] K Chiquisser PayID: [id number] [address] [place] [address] Problems Active Problems Provider Date Allergic rhinitis due to pollen LAURA Brennan Onset: 2015 Allergic rhinitis LAURA Brennan Onset: 11/29/2015 Chronic obstructive lung disease Damaris Lopez RPA-Alice Onset: 2015 Posterior rhinorrhea Damaris Lopez RPA-Alice Onset: 06/05/2016 Uncomplicated moderate persistent Kojo Saini MD Onset: 11/25/2016 asthma Family History Date Family Member(s) Observation Comments General Unknown Social History Type Date Description Comments Sex Unknown Smoke-Free Home is smoke-free Tobacco Use Start: Unknown Patient has never smoked Smoking Status Reviewed: 06/08/18 Patient has never smoked Allergies, Adverse Reactions, Alerts Active Allergies Reaction Severity Comments Date Minocycline HCL 05/30/2014 Sulfa (Sulfonamide Antibiotics) 05/30/2014 Zithromax 05/30/2014 Plaquenil 05/30/2014 Cats 11/30/2012 Medications Active Medications SIG Qnty Indications Ordering Provider Date Albuterol Sulfate Inhale 3 2Boxes J45.40 Kojo Mcgee milliliters (2.5 MD Parveen 8 (2.5mg/3ML) 0.083% mg) by Nebulizer nebulization route Q4 hours as needed. Ventolin HFA Inhale 2 puffs by 1inhaler J44.9 Kojo Mcgee inhalation route MD Parveen 6 108(90Base) mcg/Act every 4 hours as Aerosol needed Spiriva Respimat inhale 2 puffs (5 3units Kojo Mcgee mcg) by inhalation MD Parveen 5 2.5mcg/Act Aerosol route once daily at the same time each day Nitrofurantoin Take One Capsule Unknown Monohydrate/Macrocry By Mouth Twice A 0 stals Day 100mg Capsules Amitriptyline HCL Shane Reece Az, [place] 10mg Tablets Eliquis Shane Reece 5mg Tablets [place] Bernardo Fluticasone spray 2 sprays in 15.800ml J30.1 [facility]ge[facility] Propionate each nostril daily MD Parveen 0 50mcg/Act Suspension Albuterol Sulfate Unknown 0 Dulera 2 puffs twice a 8.800gm Kojo Mcgee 200-5mcg/Act day MD Parveen 0 Aerosol Sotalol HCL Unknown 0 Furosemide take 1 tablet (40 Unknown 40mg mg) by oral route 0 Tablets once daily Lyrica take 1 capsule (75 Unknown 75mg Capsules mg) by oral route 0 2 times per day History Medications Prednisone Take 3 tablets 30tabs J45.40 Kojo Mcgee 06/08/2018 - 10mg by mouth twice a MD Parveen 07/12/2018 Tablets day for 5 days. Take with food. Breo Ellipta inhale one puff 1inhaler Kojo Mcgee 12/23/2016 - once a day MD Parveen 06/09/2017 200-25mcg/Inh Aerosol Nasonex [place] 2 sprays 3units J30.1 Richarophjusta Bobo. 11/29/2015 - 50mcg/Act in each nostril MD Parveen 11/25/2016 Suspension by intranasal route once daily. Xyzal take 1 tablet (5 Unknown 10/12/2014 - 5mg Tablets mg) by oral 11/29/2015 route once daily prn Spironolactone Unknown - 25mg 11/25/2016 Tablets Tramadol Unknown - Hydrochloride/Acetam 12/08/2017 inophen 37.5-325mg Tablets Triamcinolone 2 puffs each 33gm Kojo Bobo. - Acetonide nostril twice a MD Parveen 06/09/2017 55mcg/Act day Aerosol Amitriptyline HCL daily Unknown - 06/08/2018 10mg Tablets Warfarin Sodium Shane Reece - 2.5mg Az, 12/07/2018 Tablets Enoxaparin Sodium Mark Anthony Mckeon [...] Bronchodilator <pending> Procedures Date Code Description Status 06/08/2018 63860 Nitric Oxide Gas Determination Completed 06/08/2018 45328 Bronchodilation Responsiveness Spirometry Pre/Post Completed Bronchodil Adm 12/08/2017 55776 Nitric Oxide Gas Determination Completed 12/08/2017 51930 Nitric Oxide Gas Determination Completed 12/08/2017 17133 Bronchodilation Responsiveness Spirometry Pre/Post Completed Bronchodil Adm 12/08/2017 47964 Bronchodilation Responsiveness Spirometry Pre/Post Completed Bronchodil Adm 06/09/2017 55193 Nitric Oxide Gas Determination Completed 06/09/2017 22339 Bronchodilation Responsiveness Spirometry Pre/Post Completed Bronchodil Adm 11/25/2016 84212 Nitric Oxide Gas Determination Completed 11/25/2016 01820 Bronchodilation Responsiveness Spirometry Pre/Post Completed Bronchodil Adm 06/05/2016 00764 Bronchodilation Responsiveness Spirometry Pre/Post Completed Bronchodil Adm Encounters Type Date Location Provider Dx Diagnosis Office Visit 06/08/2018 Javier Vazquez45.40 Moderate persistent 10:30a [place], asthma, uncomplicated RPA-C J44.9 Chronic obstructive pulmonary disease, unspecified J30.1 Allergic rhinitis due to pollen J30.89 Other allergic rhinitis Office Visit 12/08/2017 10:00a TEDDY Call J45.40 Moderate persistent asthma, uncomplicated J44.9 Chronic obstructive pulmonary disease, unspecified J30.1 Allergic rhinitis due to pollen J30.89 Other allergic rhinitis Office Visit 06/09/2017 9:15a Javier Kelly J45.40 Moderate persistent Fenst[place]acher, RPA-C asthma, uncomplicated J44.9 Chronic obstructive pulmonary disease, unspecified J30.1 Allergic rhinitis due to pollen J30.89 Other allergic rhinitis R09.82 Postnasal drip Office Visit 11/25/2016 10:45a Javier Mcgee J44.9 Chronic obstructive Saini, MD pulmonary disease, unspecified J30.1 Allergic rhinitis due to pollen J30.89 Other allergic rhinitis J45.40 Moderate persistent asthma, uncomplicated Office Visit 06/05/2016 10:30a Javier Kelly J44.9 Chronic Fen[place]acher, RPA-C obstructive pulmonary disease, unspecified J30.1 Allergic rhinitis due to pollen J30.89 Other allergic rhinitis R09.82 Postnasal drip Office Visit 11/29/2015 11:30a Javier Kelly [place]acher, J30.1 Allergic RPA-C rhinitis due to pollen J30.89 Other allergic rhinitis J44.9 Chronic obstructive pulmonary disease, unspecified Plan of Treatment 06/08/2018 - aDmaris Kelly Fenstermacher, RPA-CJ45.40 Moderate persistent asthma, uncomplicatedNew Medication:Albuterol Sulfate (2.5 mg/3ML) 0.083% - Inhale 3 milliliters (2.5 mg) by nebulization route Q4 hoursas needed.Prednisone 10 mg - Take 3 tablets by mouth twice a day for 5 days. Take with food.Comments:Patient with mixed asthma/COPD. She is having a mild exacerbation today. Spirometry is within normallimits. NIOX is elevated at 33ppb. Complete Prednisone as directed. Continue Dulera and Spiriva as prescribed. I will renew Ventolin and Albuterol sulfate - use every 4 hours as needed.Follow up:If condition worsens.J44.9 Chronic obstructive pulmonary disease, ihpeamkcijiT72.1 Allergic rhinitis due to pollenComments:Continue Fluticasone as directed. Patient has history of recurrent systemic reactions associated with immunotherapy. She also has history of A-fib. We will continue medical management of her allergic rhinitis.Follow up:6 months.J30.89 Other allergic rhinitis
[2018-12-31 12:48] VITALS: BP 137/47
--- NOTE | 2018-12-31 13:01 | UC ---
Complaint Female HPI - HPI Summary HPI Summary: Pt presents with c/o urinary frequency and urgency X 3 weeks. - History Of Current Complaint Chief Complaint: UCGU Stated Complaint: URINARY COMPLAINT Time Seen by Provider: 12/31/18 12:49 Hx Obtained From: Patient Hx Last Menstrual Period: n/a ?: No Onset/Duration: Sudden Onset, Lasting Weeks - 3 Timing: Constant Severity Initially: Mild Severity Currently: Mild Pain Intensity: 1 Character: Dull, Burning Aggravating Factor(s): Urination Associated Signs And Symptoms: Positive: Negative - Risk Factors Ectopic Risk Factor: Negative Ovarian Torsion Risk Factor: Negative - Allergies/Home Medications Allergies/Adverse Reactions: Allergies Allergy/AdvReac Type Severity Reaction Status Date / Time hydroxychloroquine Allergy Rash Verified 12/31/18 13:03 minocycline Allergy See Comment Verified 12/31/18 13:03 Sulfa (Sulfonamide Allergy Rash Verified 12/31/18 13:03 Antibiotics) Home Medications: Home Medications Apixaban* [Eliquis*] 5 mg PO DAILY 12/31/18 [History Confirmed 12/31/18] Mometasone/Formoter 200/5 MDI* [Dulera 200/5 MDI*] 2 puff INH BID 12/31/18 [ History Confirmed 12/31/18] PMH/Surg Hx/FS Hx/Imm Hx Previously Healthy: Yes Endocrine History: Dyslipidemia Cardiovascular History: Hypertension - Surgical History Surgical History: Yes Surgery Procedure, Year, and Place: biliat TKA. bilat [place]. usama. nose surgery. lower back cyst 2009 [place] - Family History Known Family History: Positive: Cardiac Disease - Social History Occupation: Retired Lives: With Family Alcohol Use: Weekly Substance Use Type: None Smoking Status (MU): Never Smoked Tobacco Have You Smoked in the Last Year: No - Immunization History Vaccination Up to Date: Yes Review of Systems All Other Systems Reviewed And Are Negative: Yes Constitutional: Positive: Negative Skin: Positive: Negative Eyes: Positive: Negative ENT: Positive: Negative Respiratory: Positive: Negative Cardiovascular: Positive: Negative Gastrointestinal: Positive: Negative Genitourinary: Positive: Dysuria, Frequency, Urgency Motor: Positive: Negative Neurovascular: Positive: Negative Musculoskeletal: Positive: Negative Neurological: Positive: Negative Psychological: Positive: Negative Is Patient Immunocompromised?: No Physical Exam Triage Information Reviewed: Yes Appearance: Well-Appearing Vital Signs: Initial Vital Signs Temp 97.1 F 12/31/18 12:41 Pulse 58 12/31/18 12:41 Resp 18 12/31/18 12:41 BP 137/47 12/31/18 12:41 Pulse Ox 100 12/31/18 12:41 Vital Signs Reviewed: Yes Eye Exam: Normal ENT Exam: Normal Dental Exam: Normal Neck exam: Normal Respiratory Exam: Normal Cardiovascular Exam: Normal Abdominal Exam: Normal Abdomen Description: Positive: Nontender Musculoskeletal Exam: Normal Musculoskeletal: Positive: Other: - pt uses a cane Neurological Exam: Normal Psychological Exam: Normal Skin Exam: Normal Complaint Female Dx - Differential Dx/Diagnosis Differential Diagnosis/HQI/PQRI: Urinary Tract Infection Provider Diagnosis: UTI (urinary tract infection) Discharge - Sign-Out/Discharge Documenting (check all that apply): Patient Departure All imaging exams completed and their final reports reviewed: No Studies - Discharge Plan Condition: Stable Disposition: HOME Prescriptions: Cephalexin CAP* [Keflex 500 CAP*] 500 mg PO Q8H #21 cap Patient Education Materials: Urinary Tract Infection in Women (ED) Referrals: Shane Reece DO [Primary Care Provider] - If Needed - Billing Disposition and Condition Condition: STABLE Disposition: Home
== END 2018-12-31 13:17 | disposition home or self-care (01) ==
LOC: UCCORT 12:16
DX: N39.0 Urinary tract infection, site not specified (principal); B96.20 Unspecified Escherichia coli [E. coli] as the cause of diseases classified elsewhere; Z88.1 Allergy status to other antibiotic agents; I10 Essential (primary) hypertension
CPT/HCPCS: 81003; 87077; 87086; 87186; 99202; G0463